=== PATIENT | female | born 1945 | race Caucasian/White ===

== ENCOUNTER 2019-06-16 08:06 | Inpatient (IN) ==
[2019-06-16] MEDS ORDERED: Naloxone 0.4 MG/ML INJ IVP PRN (09:27)
[2019-06-16] MEDS: Norepinephrine 4 MG in 0.9 % Sodium Chloride 250 ML IVC SCH (09:44)
[2019-06-16] MEDS ORDERED: Ipratropium/Albuterol Neb 3 ML IH ONE (10:04)
[2019-06-16] MEDS ORDERED: Ipratropium/Albuterol Neb 3 ML ONE (10:12)
[2019-06-16] MEDS ORDERED: Albumin 25% 25gram/100mL 25 GM/100 ML IV.SOLN IVPB ONE (10:47)
[2019-06-16 23:54] LABS: ABG Base Excess 3 mEq/L (-2 to 3); ABG HCO3 29 mEq/L (21-27); ABG Oxygen Saturation 93 % (95-98); ABG PCO2 50 mmHg (35-45); ABG PH 7.37 pH Units (7.32-7.45); ABG PO2 69 mmHg (85-104); ABG TCO2 30 mEq/L (20-26)
[2019-06-17] MEDS: Ipratropium/Albuterol Neb 3 ML IH SCH ×6 (03:46→23:41)
[2019-06-17] MEDS ORDERED: *HR* Dextrose 50 % in Water (Syg) 50 ML SYRINGE IVP ONE (03:51)
[2019-06-17 03:55] LABS: VBG Ionized Calcium 0.96 mmol/L (1.15-1.35)
[2019-06-17 04:22] LABS: Calcium 8.2 mg/dL (8.6-10.3); Magnesium 2.1 mg/dL (1.6-2.6); Phosphorous 3.2 mg/dL (2.7-4.5); Potassium 4.5 mEq/L (3.5-5.1)
[2019-06-17 04:41] LABS: Hematocrit 22.4 % (35.3-44.9); Hemoglobin 7.1 g/dL (11.5-15.4); Mean Corpuscular HGB Conc 31.7 g/dL (31.6-35.5); Mean Corpuscular Hemoglobin 31.7 pg (28.0-33.3); Mean Platelet Volume 10.1 fL (9.4-12.4); Platelet Count 167 K/mcL (140-400); Red Blood Count 2.24 M/mcL (3.82-4.97); Red Cell Distribution Width 14.6 % (11.5-14.5); White Blood Count 8.8 K/mcL (4.3-11.1)
[2019-06-17] MEDS ORDERED: D5% in Water 1,000 ML IVC PRN (06:24)
[2019-06-17] MEDS ORDERED: Dextrose Gel 15 GM/37.5 ML TUBE PO PRN ×2 (06:24)
[2019-06-17] MEDS: *HR* Dextrose 50 % in Water (Syg) 50 ML SYRINGE IVP PRN ×3 (07:34→13:10)
[2019-06-17] MEDS: Octreotide 400 MCG in 0.9 % Sodium Chloride 100 ML IVC SCH (11:50)
[2019-06-17] MEDS ORDERED: Melatonin 3 MG TABLET PO PRN (23:25)
[2019-06-18] MEDS: Ipratropium/Albuterol Neb 3 ML IH SCH ×6 (03:35→23:41)
[2019-06-18 05:56] LABS: Hematocrit 21.6 % (35.3-44.9); Hemoglobin 7.1 g/dL (11.5-15.4); Mean Corpuscular HGB Conc 32.9 g/dL (31.6-35.5); Mean Corpuscular Hemoglobin 32.3 pg (28.0-33.3); Mean Corpuscular Volume 98.2 fL (83.0-100.0); Mean Platelet Volume 9.8 fL (9.4-12.4); Platelet Count 230 K/mcL (140-400); White Blood Count 6.8 K/mcL (4.3-11.1)
[2019-06-18 06:13] LABS: Calcium 7.7 mg/dL (8.6-10.3); Phosphorous 4.1 mg/dL (2.7-4.5); Potassium 5.5 mEq/L (3.5-5.1)
[2019-06-18] MEDS: Norepinephrine 4 MG in 0.9 % Sodium Chloride 250 ML IVC SCH (07:50)
[2019-06-18] MEDS: Octreotide 400 MCG in 0.9 % Sodium Chloride 100 ML IVC SCH (07:51)
[2019-06-18] MEDS ORDERED: 0.9 % Sodium Chloride 250 ML IVC PRN ×2 (07:53→15:17)
[2019-06-18] MEDS ORDERED: 0.9 % Sodium Chloride 1,000 ML PRIME SCH ×2 (08:00→15:17)
[2019-06-18 08:30] LABS: Hepatitis B Surface Antibody 51.72 mIU/mL
[2019-06-18 08:41] LABS: Hepatitis B Surface Antigen Nonreactive (Nonreactive)
[2019-06-18] MEDS ORDERED: Albumin 25% 25gram/100mL 25 GM/100 ML IV.SOLN IVPB PRN ×3 (10:07→15:17)
[2019-06-18] MEDS ORDERED: Albumin 25% 25gram/100mL 25 GM/100 ML IV.SOLN ONE (10:15)
[2019-06-18 11:01] LABS: % Iron Saturation 9 % (15-50); Iron 20 mcg/dL (50-170); Transferrin 156 mg/dL (203-362)
[2019-06-18 11:18] LABS: Ferritin 894 ng/mL (10-120)
[2019-06-18 11:24] LABS: Folate 16.5 ng/mL (3.0-16.0)
[2019-06-18] MEDS ORDERED: NON-FORMULARY MEDICATION 1 EACH EACH (Hydroxyzine Hcl [Hydroxyzine Hcl] 25 MG) PO PRN (15:06)
[2019-06-18] MEDS ORDERED: Ipratropium/Albuterol Neb 3 ML IH PRN ×2 (15:06→15:17)
[2019-06-18] MEDS ORDERED: Dextrose Gel 15 GM/37.5 ML TUBE PO PRN ×2 (15:17)
[2019-06-18] MEDS ORDERED: D5% in Water 1,000 ML IVC PRN (15:17)
[2019-06-18] MEDS ORDERED: Melatonin 3 MG TABLET PO PRN (15:17)
[2019-06-18] MEDS ORDERED: *HR* Dextrose 50 % in Water (Syg) 50 ML SYRINGE IVP PRN (15:17)
[2019-06-18] MEDS ORDERED: Naloxone 0.4 MG/ML INJ IVP PRN (15:17)
[2019-06-18] MEDS: *HR* Heparin 5,000 UNIT/ML VIAL SQ SCH (16:57)
[2019-06-18] MEDS ORDERED: *HR* Heparin 5,000 UNIT/ML VIAL SQ SCH (18:00)
[2019-06-18] MEDS: Venlafaxine XR (24 HR) 37.5 MG CAP.ER.24H PO SCH (20:33)
[2019-06-18] MEDS: Gabapentin 100 MG CAPSULE PO SCH (20:33)
[2019-06-18] MEDS ORDERED: VENLAFAXINE HCL 37.5 MG PO SCH (21:00)
[2019-06-18] MEDS ORDERED: Gabapentin 100 MG CAPSULE PO SCH (21:00)
[2019-06-19 01:57] LABS: Basophils % 0.2 %; Eosinophils % 0.5 %; Hematocrit 20.9 % (35.3-44.9); Hemoglobin 6.6 g/dL (11.5-15.4); Immature Granulocytes % 0.5 % (0-4); Lymphocytes # 0.8 K/mcL (0.6-4.6); Mean Corpuscular HGB Conc 31.6 g/dL (31.6-35.5); Mean Corpuscular Hemoglobin 31.3 pg (28.0-33.3); Mean Corpuscular Volume 99.1 fL (83.0-100.0); Mean Platelet Volume 9.1 fL (9.4-12.4); Monocytes # 0.6 K/mcL (0.0-1.3); Monocytes % 9.6 %; Neutrophils # 5.1 K/mcL (1.6-8.9); Platelet Count 239 K/mcL (140-400); Red Blood Count 2.11 M/mcL (3.82-4.97); Red Cell Distribution Width 14.9 % (11.5-14.5); Segmented Neutrophils % 77.2 %; White Blood Count 6.6 K/mcL (4.3-11.1)
[2019-06-19 01:58] LABS: Hematocrit 20.6 % (35.3-44.9); Hemoglobin 6.6 g/dL (11.5-15.4); Mean Corpuscular Hemoglobin 31.7 pg (28.0-33.3); Mean Platelet Volume 9.3 fL (9.4-12.4); Platelet Count 231 K/mcL (140-400); Red Blood Count 2.08 M/mcL (3.82-4.97); Red Cell Distribution Width 14.9 % (11.5-14.5); White Blood Count 6.9 K/mcL (4.3-11.1)
[2019-06-19 02:24] LABS: Calcium 8.2 mg/dL (8.6-10.3); Magnesium 1.9 mg/dL (1.6-2.6); Phosphorous 3.2 mg/dL (2.7-4.5); Potassium 3.9 mEq/L (3.5-5.1)
[2019-06-19] MEDS: Ipratropium/Albuterol Neb 3 ML IH SCH ×3 (03:41→11:14)
[2019-06-19] MEDS: *HR* Heparin 5,000 UNIT/ML VIAL SQ SCH (05:43)
[2019-06-19] MEDS ORDERED: 0.9 % Sodium Chloride 250 ML IVC PRN (07:50)
[2019-06-19] MEDS ORDERED: Ferumoxytol 510 MG in 0.9 % Sodium Chloride 100 ML IVPB ONE (09:00)
[2019-06-19] MEDS ORDERED: Renal Vitamin 1 CAP CAPSULE PO SCH ×2 (09:00)
[2019-06-19] MEDS ORDERED: Aspirin Enteric Coated 81 MG Tablet PO SCH ×2 (09:00)
[2019-06-19] MEDS: Gabapentin 100 MG CAPSULE PO SCH (09:23)
[2019-06-19] MEDS: Venlafaxine XR (24 HR) 37.5 MG CAP.ER.24H PO SCH (09:23)
[2019-06-19 11:36] VITALS: BP 95/64
== END 2019-06-19 13:10 | DRG 917 ==
LOC: 3NENU 08:14 → ICNU 08:29 → 2ANU 06-18 14:29
PROVIDERS: ADMIT Internal Medicine Pulmonary Disease; ATTEND Internal Medicine

== ENCOUNTER 2019-06-20 05:47 | Observation (INO) ==
[2019-06-20] MEDS ORDERED: Naloxone 0.4 MG/ML INJ IVP PRN (07:56)
[2019-06-20] MEDS: cefTRIAXone 1,000 MG in Water for inj. (sterile) 10 ML IVP SCH (08:40)
[2019-06-20] MEDS: Azithromycin 500 MG in 0.9 % Sodium Chloride 250 ML IVPB SCH (08:40)
[2019-06-20] MEDS: carvediloL 6.25 MG TABLET PO SCH ×2 (08:42→17:35)
[2019-06-20] MEDS: Aspirin Enteric Coated 81 MG Tablet PO SCH (08:44)
[2019-06-20] MEDS: Gabapentin 100 MG CAPSULE PO SCH ×3 (08:44→19:52)
[2019-06-20] MEDS: Ipratropium/Albuterol Neb 3 ML IH SCH ×5 (09:49→23:21)
[2019-06-20] MEDS: Budesonide/Formoterol 160/4.5 1 PUFF INH IH SCH ×2 (09:51→19:44)
[2019-06-20] MEDS: *HR* Heparin 5,000 UNIT/ML VIAL SQ SCH ×2 (10:13→17:35)
[2019-06-20] MEDS: MethylPREDNISolone 40 MG/ML VIAL IVP SCH ×3 (10:13→23:06)
[2019-06-21 01:40] LABS: Hematocrit 21.9 % (35.3-44.9); Hemoglobin 6.9 g/dL (11.5-15.4); Immature Granulocytes % 0.4 % (0-4); Lymphocytes # 0.3 K/mcL (0.6-4.6); Lymphocytes % 6.4 %; Mean Corpuscular HGB Conc 31.5 g/dL (31.6-35.5); Mean Corpuscular Hemoglobin 30.8 pg (28.0-33.3); Mean Corpuscular Volume 97.8 fL (83.0-100.0); Mean Platelet Volume 9.3 fL (9.4-12.4); Monocytes # 0.2 K/mcL (0.0-1.3); Monocytes % 3.1 %; Neutrophils # 4.7 K/mcL (1.6-8.9); Platelet Count 217 K/mcL (140-400); Red Blood Count 2.24 M/mcL (3.82-4.97); Red Cell Distribution Width 14.8 % (11.5-14.5); Segmented Neutrophils % 90.1 %; White Blood Count 5.2 K/mcL (4.3-11.1)
[2019-06-21 01:59] LABS: Calcium 8.8 mg/dL (8.6-10.3); Phosphorous 3.5 mg/dL (2.7-4.5)
[2019-06-21] MEDS: Ipratropium/Albuterol Neb 3 ML IH SCH ×3 (03:30→11:46)
[2019-06-21] MEDS: *HR* Heparin 5,000 UNIT/ML VIAL SQ SCH (05:59)
[2019-06-21] MEDS ORDERED: 0.9 % Sodium Chloride 1,000 ML PRIME SCH (07:30)
[2019-06-21] MEDS ORDERED: 0.9 % Sodium Chloride 250 ML IVC PRN (07:30)
[2019-06-21] MEDS: carvediloL 6.25 MG TABLET PO SCH (07:36)
[2019-06-21] MEDS: Gabapentin 100 MG CAPSULE PO SCH (07:49)
[2019-06-21] MEDS: MethylPREDNISolone 40 MG/ML VIAL IVP SCH (07:49)
[2019-06-21] MEDS: Aspirin Enteric Coated 81 MG Tablet PO SCH (07:49)
[2019-06-21] MEDS: cefTRIAXone 1,000 MG in Water for inj. (sterile) 10 ML IVP SCH (07:49)
[2019-06-21] MEDS: Azithromycin 500 MG in 0.9 % Sodium Chloride 250 ML IVPB SCH (07:50)
[2019-06-21] MEDS ORDERED: Ondansetron 4 MG/2 ML VIAL IVP PRN (08:46)
[2019-06-21] MEDS: Budesonide/Formoterol 160/4.5 1 PUFF INH IH SCH (11:46)
[2019-06-21 12:04] VITALS: BP 158/84
== END 2019-06-21 13:04 ==
LOC: 2ANU → SUATTDRO 07:20
PROVIDERS: ADMIT Student in an Organized Health Care Education/Training Program; ATTEND Internal Medicine

== ENCOUNTER 2019-06-29 22:13 | Inpatient (IN) ==
[2019-06-30] MEDS ORDERED: Ondansetron ODT 4 MG TAB.RAPDIS SL PRN (01:42)
[2019-06-30] MEDS ORDERED: Naloxone 0.4 MG/ML INJ IVP PRN (01:42)
[2019-06-30] MEDS ORDERED: Aspirin 81 MG TAB.CHEW PO ONE (01:45)
[2019-06-30] MEDS ORDERED: Melatonin 3 MG TABLET PO PRN (02:40)
[2019-06-30] MEDS ORDERED: Calcium Gluconate 1gm/50mL 1 GM/50 ML BAG IVPB ONE (03:01)
[2019-06-30 03:18] LABS: Calcium 8.1 mg/dL (8.6-10.3); Potassium 4.5 mEq/L (3.5-5.1)
[2019-06-30] MEDS: Ipratropium/Albuterol Neb 3 ML IH SCH ×4 (03:58→22:26)
[2019-06-30] MEDS: *HR* Heparin 5,000 UNIT/ML VIAL SQ SCH ×2 (04:38→17:12)
[2019-06-30 06:32] LABS: Basophils % 0.2 %; Hematocrit 27.4 % (35.3-44.9); Hemoglobin 8.4 g/dL (11.5-15.4); Immature Granulocytes % 1.4 % (0-4); Lymphocytes # 0.4 K/mcL (0.6-4.6); Lymphocytes % 6.3 %; Mean Corpuscular HGB Conc 30.7 g/dL (31.6-35.5); Mean Corpuscular Hemoglobin 30.7 pg (28.0-33.3); Mean Platelet Volume 9.1 fL (9.4-12.4); Monocytes # 0.2 K/mcL (0.0-1.3); Monocytes % 2.9 %; Neutrophils # 5.2 K/mcL (1.6-8.9); Platelet Count 242 K/mcL (140-400); Red Blood Count 2.74 M/mcL (3.82-4.97); Red Cell Distribution Width 17.6 % (11.5-14.5); Segmented Neutrophils % 89.2 %; White Blood Count 5.9 K/mcL (4.3-11.1)
[2019-06-30] MEDS ORDERED: hydrOXYzine pamoate 25 MG CAPSULE PO PRN (08:06)
[2019-06-30] MEDS ORDERED: Ipratropium/Albuterol Neb 3 ML IH PRN (08:06)
[2019-06-30 08:24] LABS: Estimated Average Glucose 103 mg/dl
[2019-06-30] MEDS: carvediloL 6.25 MG TABLET PO SCH ×2 (08:41→16:47)
[2019-06-30] MEDS: Venlafaxine XR (24 HR) 37.5 MG CAP.ER.24H PO SCH ×2 (08:43→20:59)
[2019-06-30] MEDS: Gabapentin 100 MG CAPSULE PO SCH ×3 (08:43→20:59)
[2019-06-30] MEDS ORDERED: Furosemide 20 MG TABLET PO SCH (09:00)
[2019-06-30] MEDS ORDERED: NON-FORMULARY MEDICATION 1 EACH EACH (Umeclidinium Brm/Vilanterol Tr [Anoro Ellipta 62.5-2 IH SCH (09:00)
[2019-06-30] MEDS ORDERED: *HR* Heparin 10,000 UNIT/10 ML VIAL IV PRN (12:06)
[2019-06-30] MEDS ORDERED: Albumin 25% 25gram/100mL 25 GM/100 ML IV.SOLN IVPB PRN ×2 (12:06→14:19)
[2019-06-30] MEDS ORDERED: 0.9 % Sodium Chloride 250 ML IVC PRN (12:06)
[2019-06-30] MEDS ORDERED: 0.9 % Sodium Chloride 1,000 ML PRIME SCH (12:15)
[2019-06-30] MEDS ORDERED: Albumin 25% 25gram/100mL 25 GM/100 ML IV.SOLN ONE (14:15)
[2019-06-30] MEDS ORDERED: Darbepoetin 100 MCG/0.5 ML SYRINGE SQ SCH (16:00)
[2019-06-30 18:54] LABS: Troponin I 0.06 ng/mL (< 0.04)
[2019-06-30] MEDS ORDERED: Isovue-370 500 ML BOTTLE IVP ONE (19:11)
[2019-06-30] MEDS ORDERED: Furosemide 20 MG/2 ML VIAL IVP ONE ×2 (22:51→22:53)
[2019-06-30] MEDS ORDERED: *HR* LORazepam 2 MG/ML VIAL IVP ONE (22:54)
[2019-06-30] MEDS ORDERED: Levalbuterol Neb 1.25 MG/3 ML IH PRN (23:07)
[2019-06-30] MEDS: Melatonin 3 MG TABLET PO SCH (23:52)
[2019-07-01 00:09] LABS: VBG HCO3 30 mEq/L (21-27); VBG PCO2 54 mmHg (41-51); VBG PH 7.36 pH Units (7.32-7.42); VBG PO2 97 mmHg (25-50)
[2019-07-01 00:26] LABS: Calcium 8.6 mg/dL (8.6-10.3); Magnesium 2.2 mg/dL (1.6-2.6); Potassium 4.2 mEq/L (3.5-5.1)
[2019-07-01] MEDS: Levalbuterol Neb 1.25 MG/3 ML IH SCH ×4 (04:04→21:38)
[2019-07-01 06:36] LABS: Hematocrit 23.4 % (35.3-44.9); Hemoglobin 7.3 g/dL (11.5-15.4); Mean Corpuscular HGB Conc 31.2 g/dL (31.6-35.5); Mean Corpuscular Hemoglobin 31.5 pg (28.0-33.3); Mean Corpuscular Volume 100.9 fL (83.0-100.0); Mean Platelet Volume 9.2 fL (9.4-12.4); Platelet Count 208 K/mcL (140-400); Red Blood Count 2.32 M/mcL (3.82-4.97); Red Cell Distribution Width 18.2 % (11.5-14.5); White Blood Count 8.6 K/mcL (4.3-11.1)
[2019-07-01] MEDS: *HR* Heparin 5,000 UNIT/ML VIAL SQ SCH ×2 (06:41→17:03)
[2019-07-01 06:55] LABS: Calcium 8.4 mg/dL (8.6-10.3); Potassium 3.9 mEq/L (3.5-5.1)
[2019-07-01] MEDS ORDERED: Furosemide 80 MG in 0.9 % Sodium Chloride 50 ML IVPB ONE (07:17)
[2019-07-01] MEDS: Gabapentin 100 MG CAPSULE PO SCH ×3 (09:40→20:43)
[2019-07-01] MEDS: Venlafaxine XR (24 HR) 37.5 MG CAP.ER.24H PO SCH ×2 (09:40→20:43)
[2019-07-01] MEDS: Metoprolol XL (24 HR) Succ 25 MG TAB.ER.24H PO SCH (09:40)
[2019-07-01] MEDS: Aspirin Enteric Coated 81 MG Tablet PO SCH (09:40)
[2019-07-01 10:42] LABS: RBC,Pleural Fluid < 0.002 M/mcL
[2019-07-01 10:55] LABS: Amylase,Pleural Fluid 27 Units/L (No Ref Range); Glucose,Pleural Fluid 104 mg/dL (No Ref Range); LDH,Pleural Fluid 57 Units/L (No Ref Range); Total Protein,Pleural Fluid < 3.0 g/dL
[2019-07-01 11:34] LABS: INR 1.2; Prothrombin Time 13.9 Seconds (9.4-12.1)
[2019-07-01 11:36] LABS: Basophils,Pleural Fluid 0 %; Eosinophils,Pleural Fluid 0 %
[2019-07-01 11:38] LABS: Appearance of Pleural Fl Clear (Clear)
[2019-07-01 11:49] LABS: Albumin 4.1 g/dL (3.5-5.7); Albumin/Globulin Ratio 2.4 (1.1-2.2); Bilirubin,Total 0.6 mg/dL (0.3-1.0); Globulin 1.7 g/dL (2.4-3.5); Total Protein 5.8 g/dL (6.4-8.9)
[2019-07-01] MEDS: Melatonin 3 MG TABLET PO SCH (20:43)
[2019-07-01] MEDS: Sennosides/Docusate Sodium TABLET PO SCH (20:43)
[2019-07-02 03:20] LABS: Hematocrit 23.6 % (35.3-44.9); Hemoglobin 7.3 g/dL (11.5-15.4); Mean Corpuscular HGB Conc 30.9 g/dL (31.6-35.5); Mean Corpuscular Hemoglobin 30.9 pg (28.0-33.3); Platelet Count 204 K/mcL (140-400); Red Blood Count 2.36 M/mcL (3.82-4.97); Red Cell Distribution Width 18.1 % (11.5-14.5); White Blood Count 9.6 K/mcL (4.3-11.1)
[2019-07-02 03:30] LABS: Calcium 8.6 mg/dL (8.6-10.3)
[2019-07-02] MEDS: Levalbuterol Neb 1.25 MG/3 ML IH SCH ×2 (04:00→10:49)
[2019-07-02] MEDS: *HR* Heparin 5,000 UNIT/ML VIAL SQ SCH (07:17)
[2019-07-02] MEDS ORDERED: Albumin 25% 25gram/100mL 25 GM/100 ML IV.SOLN IVPB PRN (08:05)
[2019-07-02] MEDS ORDERED: 0.9 % Sodium Chloride 250 ML IVC PRN (08:05)
[2019-07-02] MEDS: Sennosides/Docusate Sodium TABLET PO SCH (08:13)
[2019-07-02] MEDS: Gabapentin 100 MG CAPSULE PO SCH (08:13)
[2019-07-02] MEDS: Aspirin Enteric Coated 81 MG Tablet PO SCH (08:13)
[2019-07-02] MEDS: Venlafaxine XR (24 HR) 37.5 MG CAP.ER.24H PO SCH (08:13)
[2019-07-02] MEDS: Metoprolol XL (24 HR) Succ 25 MG TAB.ER.24H PO SCH (08:14)
[2019-07-02] MEDS ORDERED: 0.9 % Sodium Chloride 1,000 ML PRIME SCH (08:15)
[2019-07-02] MEDS ORDERED: polyethylene glycoL 3350 17 GM POWD.PACK PO SCH (09:00)
[2019-07-02 12:34] VITALS: BP 101/66
[2019-07-03 03:17] LABS: Fluid Source for Albumin PLEURAL FLUID
[2019-07-03 03:36] LABS: Fluid Source for Bilirubin PLEURAL FLUID; Fluid Source for CEA PLEURAL FLUID
== END 2019-07-02 14:40 | DRG 280 ==
LOC: 2ANU → SUATTDRO 06-30 00:29
PROVIDERS: ADMIT Internal Medicine; ATTEND Internal Medicine

== ENCOUNTER 2019-07-09 04:17 | Inpatient (IN) ==
[2019-07-09] MEDS ORDERED: Aminoglycoside Consult 1 EACH MC ONE (08:09)
[2019-07-09] MEDS ORDERED: Naloxone 0.4 MG/ML INJ IVP PRN (09:27)
[2019-07-09] MEDS ORDERED: Vancomycin 1 EACH in 0.9 % Sodium Chloride 250 ML IVPB SCH (10:00)
[2019-07-09] MEDS: Norepinephrine 4 MG in 0.9 % Sodium Chloride 250 ML IVC SCH (16:04)
[2019-07-09] MEDS: *HR* Heparin 5,000 UNIT/ML VIAL SQ SCH (16:06)
[2019-07-09] MEDS: Piperacillin/Tazobactam 3.375 GM in 0.9 % Sodium Chloride Mini Bag 100 ML IVPB SCH (17:33)
[2019-07-09] MEDS ORDERED: Melatonin 3 MG TABLET PO PRN (23:56)
[2019-07-10] MEDS: *HR* Heparin 5,000 UNIT/ML VIAL SQ SCH ×5 (00:05→23:26)
[2019-07-10 04:50] LABS: Basophils # 0.1 K/mcL (0.0-0.2); Basophils % 0.7 %; Eosinophils # 0.1 K/mcL (0.0-0.6); Eosinophils % 0.9 %; Hematocrit 24.8 % (35.3-44.9); Hemoglobin 7.6 g/dL (11.5-15.4); Immature Granulocytes % 0.7 % (0-4); Lymphocytes # 1.2 K/mcL (0.6-4.6); Lymphocytes % 16.7 %; Mean Corpuscular HGB Conc 30.6 g/dL (31.6-35.5); Mean Corpuscular Hemoglobin 31.8 pg (28.0-33.3); Mean Corpuscular Volume 103.8 fL (83.0-100.0); Mean Platelet Volume 9.5 fL (9.4-12.4); Monocytes # 0.8 K/mcL (0.0-1.3); Monocytes % 11.2 %; Neutrophils # 5.2 K/mcL (1.6-8.9); Platelet Count 300 K/mcL (140-400); Red Blood Count 2.39 M/mcL (3.82-4.97); Red Cell Distribution Width 18.9 % (11.5-14.5); Segmented Neutrophils % 69.8 %; White Blood Count 7.4 K/mcL (4.3-11.1)
[2019-07-10 05:10] LABS: Calcium 8.1 mg/dL (8.6-10.3); Magnesium 2.1 mg/dL (1.6-2.6); Phosphorous 4.5 mg/dL (2.7-4.5); Potassium 5.1 mEq/L (3.5-5.1)
[2019-07-10] MEDS: Piperacillin/Tazobactam 3.375 GM in 0.9 % Sodium Chloride Mini Bag 100 ML IVPB SCH ×2 (05:59→16:46)
[2019-07-10] MEDS: Norepinephrine 4 MG in 0.9 % Sodium Chloride 250 ML IVC SCH (06:00)
[2019-07-10] MEDS ORDERED: Albumin 25% 25gram/100mL 25 GM/100 ML IV.SOLN IVPB PRN (07:49)
[2019-07-10] MEDS ORDERED: 0.9 % Sodium Chloride 250 ML IVC PRN (07:49)
[2019-07-10] MEDS ORDERED: 0.9 % Sodium Chloride 2,000 ML ONE (07:51)
[2019-07-10] MEDS: Acetaminophen 325 MG TABLET PO PRN ×2 (07:57→19:34)
[2019-07-10] MEDS ORDERED: 0.9 % Sodium Chloride 1,000 ML PRIME SCH (08:00)
[2019-07-10 09:02] LABS: INR 1.2; Prothrombin Time 13.2 Seconds (9.4-12.1)
[2019-07-10 11:30] LABS: Thyroid Stimulating Hormone 2.549 mcIU/mL (0.340-5.600)
[2019-07-10] MEDS ORDERED: Ipratropium/Albuterol Neb 3 ML IH PRN (12:45)
[2019-07-10] MEDS ORDERED: Ondansetron 4 MG/2 ML VIAL IVP PRN (13:06)
[2019-07-10] MEDS ORDERED: Darbepoetin 100 MCG/0.5 ML SYRINGE SQ SCH (14:00)
[2019-07-10] MEDS ORDERED: Pregabalin 75 MG CAPSULE PO ONE (15:30)
[2019-07-10] MEDS: Melatonin 3 MG TABLET PO PRN (22:15)
[2019-07-11 03:43] LABS: Basophils # 0.1 K/mcL (0.0-0.2); Basophils % 0.7 %; Eosinophils # 0.1 K/mcL (0.0-0.6); Eosinophils % 1.3 %; Hematocrit 25.9 % (35.3-44.9); Hemoglobin 7.6 g/dL (11.5-15.4); Immature Granulocytes % 0.6 % (0-4); Lymphocytes # 1.2 K/mcL (0.6-4.6); Lymphocytes % 17.1 %; Mean Corpuscular HGB Conc 29.3 g/dL (31.6-35.5); Mean Corpuscular Volume 105.7 fL (83.0-100.0); Mean Platelet Volume 9.4 fL (9.4-12.4); Monocytes # 0.7 K/mcL (0.0-1.3); Monocytes % 10.1 %; Neutrophils # 4.8 K/mcL (1.6-8.9); Platelet Count 313 K/mcL (140-400); Red Blood Count 2.45 M/mcL (3.82-4.97); Red Cell Distribution Width 19.4 % (11.5-14.5); Segmented Neutrophils % 70.2 %; White Blood Count 6.9 K/mcL (4.3-11.1)
[2019-07-11 04:01] LABS: Calcium 8.1 mg/dL (8.6-10.3); Potassium 4.1 mEq/L (3.5-5.1)
[2019-07-11] MEDS: Piperacillin/Tazobactam 3.375 GM in 0.9 % Sodium Chloride Mini Bag 100 ML IVPB SCH (05:45)
[2019-07-11] MEDS: *HR* Heparin 5,000 UNIT/ML VIAL SQ SCH ×2 (07:58→16:27)
[2019-07-11] MEDS: hydrOXYzine pamoate 25 MG CAPSULE PO PRN ×2 (07:58→16:27)
[2019-07-11] MEDS: Gabapentin 100 MG CAPSULE PO SCH ×3 (07:58→20:25)
[2019-07-11] MEDS: Norepinephrine 4 MG in 0.9 % Sodium Chloride 250 ML IVC SCH (15:24)
[2019-07-11] MEDS: cefTRIAXone 1,000 MG in Water for inj. (sterile) 10 ML IVP SCH (16:27)
[2019-07-11] MEDS: Melatonin 3 MG TABLET PO PRN (21:58)
[2019-07-12] MEDS: *HR* Heparin 5,000 UNIT/ML VIAL SQ SCH ×3 (00:03→15:04)
[2019-07-12 04:10] LABS: Basophils # 0.1 K/mcL (0.0-0.2); Basophils % 0.9 %; Eosinophils # 0.1 K/mcL (0.0-0.6); Eosinophils % 1.2 %; Hematocrit 25.6 % (35.3-44.9); Hemoglobin 7.6 g/dL (11.5-15.4); Immature Granulocytes % 0.6 % (0-4); Lymphocytes # 1.4 K/mcL (0.6-4.6); Lymphocytes % 20.3 %; Mean Corpuscular HGB Conc 29.7 g/dL (31.6-35.5); Mean Corpuscular Hemoglobin 31.5 pg (28.0-33.3); Mean Corpuscular Volume 106.2 fL (83.0-100.0); Mean Platelet Volume 9.4 fL (9.4-12.4); Monocytes # 0.8 K/mcL (0.0-1.3); Monocytes % 11.3 %; Neutrophils # 4.5 K/mcL (1.6-8.9); Platelet Count 282 K/mcL (140-400); Red Blood Count 2.41 M/mcL (3.82-4.97); Red Cell Distribution Width 19.1 % (11.5-14.5); Segmented Neutrophils % 65.7 %; White Blood Count 6.8 K/mcL (4.3-11.1)
[2019-07-12 04:28] LABS: Calcium 8.2 mg/dL (8.6-10.3); Potassium 4.9 mEq/L (3.5-5.1)
[2019-07-12] MEDS: Gabapentin 100 MG CAPSULE PO SCH ×3 (07:46→22:41)
[2019-07-12] MEDS: cefTRIAXone 1,000 MG in Water for inj. (sterile) 10 ML IVP SCH (07:46)
[2019-07-12] MEDS ORDERED: 0.9 % Sodium Chloride 250 ML IVC PRN (08:13)
[2019-07-12] MEDS ORDERED: Albumin 25% 25gram/100mL 25 GM/100 ML IV.SOLN ONE (09:35)
[2019-07-12] MEDS ORDERED: Ipratropium/Albuterol Neb 3 ML IH PRN (12:40)
[2019-07-12] MEDS ORDERED: Ondansetron 4 MG/2 ML VIAL IVP PRN (12:40)
[2019-07-12] MEDS ORDERED: Naloxone 0.4 MG/ML INJ IVP PRN (12:40)
[2019-07-12] MEDS ORDERED: Darbepoetin 100 MCG/0.5 ML SYRINGE SQ SCH (12:40)
[2019-07-12] MEDS ORDERED: MethylPREDNISolone 40 MG/ML VIAL IVP ONE (16:34)
[2019-07-12] MEDS: hydrOXYzine pamoate 25 MG CAPSULE PO PRN (16:34)
[2019-07-12] MEDS ORDERED: Albuterol 2.5 MG/3 ML NEBULIZER IH ONE (16:34)
[2019-07-12] MEDS ORDERED: Furosemide 40 MG/4 ML VIAL IVP ONE (19:43)
[2019-07-12] MEDS ORDERED: Morphine Sulfate 2 MG/ML SYRINGE IVP ONE (20:14)
[2019-07-12] MEDS ORDERED: *HR* LORazepam 2 MG/ML VIAL IVP ONE (20:21)
[2019-07-12 20:49] LABS: VBG HCO3 29 mEq/L (21-27); VBG PCO2 104 mmHg (41-51); VBG PH 7.05 pH Units (7.32-7.42); VBG PO2 70 mmHg (25-50)
[2019-07-12] MEDS: Ipratropium Neb 0.5 MG NEBULIZER IH SCH ×2 (21:20→23:49)
[2019-07-12 23:04] LABS: VBG HCO3 31 mEq/L (21-27); VBG PCO2 60 mmHg (41-51); VBG PH 7.33 pH Units (7.32-7.42); VBG PO2 168 mmHg (25-50)
[2019-07-12] MEDS: Levalbuterol Neb 1.25 MG/3 ML IH SCH (23:49)
[2019-07-13] MEDS: *HR* Heparin 5,000 UNIT/ML VIAL SQ SCH ×4 (00:33→23:38)
[2019-07-13] MEDS: Ipratropium Neb 0.5 MG NEBULIZER IH SCH ×5 (03:50→19:48)
[2019-07-13] MEDS: Levalbuterol Neb 1.25 MG/3 ML IH SCH ×3 (03:50→16:41)
[2019-07-13 04:50] LABS: Basophils % 0.1 %; Hematocrit 24.3 % (35.3-44.9); Hemoglobin 7.3 g/dL (11.5-15.4); Immature Granulocytes % 0.7 % (0-4); Lymphocytes # 0.5 K/mcL (0.6-4.6); Lymphocytes % 6.3 %; Mean Corpuscular Hemoglobin 31.1 pg (28.0-33.3); Mean Corpuscular Volume 103.4 fL (83.0-100.0); Mean Platelet Volume 9.9 fL (9.4-12.4); Monocytes # 0.2 K/mcL (0.0-1.3); Monocytes % 2.5 %; Neutrophils # 6.5 K/mcL (1.6-8.9); Nucleated Red Blood Cells 0.3 /100 WBC (0); Platelet Count 272 K/mcL (140-400); Red Blood Count 2.35 M/mcL (3.82-4.97); Red Cell Distribution Width 18.6 % (11.5-14.5); Segmented Neutrophils % 90.4 %; White Blood Count 7.1 K/mcL (4.3-11.1)
[2019-07-13 05:00] LABS: Calcium 8.3 mg/dL (8.6-10.3); Potassium 4.9 mEq/L (3.5-5.1)
[2019-07-13] MEDS: Gabapentin 100 MG CAPSULE PO SCH ×3 (08:52→20:14)
[2019-07-13] MEDS ORDERED: cefTRIAXone 1,000 MG in Water for inj. (sterile) 10 ML IVP SCH (09:00)
[2019-07-13] MEDS: predniSONE 20 MG TABLET PO SCH (13:40)
[2019-07-13] MEDS: hydrOXYzine pamoate 25 MG CAPSULE PO PRN (17:13)
[2019-07-13] MEDS ORDERED: Morphine Sulfate 2 MG/ML SYRINGE IVP ONE (19:27)
[2019-07-13] MEDS ORDERED: Levalbuterol Neb 1.25 MG/3 ML IH ONE (19:28)
[2019-07-13] MEDS: Simethicone 80 MG TAB.CHEW PO PRN (20:15)
[2019-07-13] MEDS: Melatonin 3 MG TABLET PO PRN (23:10)
[2019-07-13] MEDS: Acetaminophen 325 MG TABLET PO PRN (23:34)
[2019-07-14] MEDS: Levalbuterol Neb 1.25 MG/3 ML IH SCH ×5 (00:08→20:06)
[2019-07-14] MEDS: Ipratropium Neb 0.5 MG NEBULIZER IH SCH ×6 (00:08→20:06)
[2019-07-14] MEDS: hydrOXYzine pamoate 25 MG CAPSULE PO PRN ×2 (00:48→21:26)
[2019-07-14 05:53] LABS: ABG Base Excess 2 mEq/L (-2 to 3); ABG HCO3 26 mEq/L (21-27); ABG Oxygen Saturation 93 % (95-98); ABG PCO2 39 mmHg (35-45); ABG PH 7.43 pH Units (7.32-7.45); ABG PO2 64 mmHg (85-104); ABG TCO2 27 mEq/L (20-26); Blood Gas Modality 2LPM
[2019-07-14 06:01] LABS: Basophils % 0.2 %; Hematocrit 25.6 % (35.3-44.9); Hemoglobin 7.8 g/dL (11.5-15.4); Immature Granulocytes % 1.1 % (0-4); Lymphocytes # 0.6 K/mcL (0.6-4.6); Lymphocytes % 8.5 %; Mean Corpuscular HGB Conc 30.5 g/dL (31.6-35.5); Mean Corpuscular Hemoglobin 31.1 pg (28.0-33.3); Mean Platelet Volume 9.4 fL (9.4-12.4); Monocytes # 0.3 K/mcL (0.0-1.3); Neutrophils # 5.6 K/mcL (1.6-8.9); Nucleated Red Blood Cells 0.3 /100 WBC (0); Platelet Count 309 K/mcL (140-400); Red Blood Count 2.51 M/mcL (3.82-4.97); Red Cell Distribution Width 18.7 % (11.5-14.5); Segmented Neutrophils % 85.2 %; White Blood Count 6.6 K/mcL (4.3-11.1)
[2019-07-14 06:21] LABS: Calcium 8.8 mg/dL (8.6-10.3); Potassium 5.5 mEq/L (3.5-5.1)
[2019-07-14] MEDS ORDERED: 0.9 % Sodium Chloride 250 ML IVC PRN (06:48)
[2019-07-14] MEDS ORDERED: 0.9 % Sodium Chloride 1,000 ML PRIME SCH (07:00)
[2019-07-14] MEDS: *HR* Heparin 5,000 UNIT/ML VIAL SQ SCH ×2 (07:39→15:29)
[2019-07-14] MEDS: predniSONE 20 MG TABLET PO SCH (07:40)
[2019-07-14] MEDS: Gabapentin 100 MG CAPSULE PO SCH ×3 (07:40→20:34)
[2019-07-14] MEDS: Simethicone 80 MG TAB.CHEW PO PRN (20:34)
[2019-07-14] MEDS: Melatonin 3 MG TABLET PO PRN (21:26)
[2019-07-15] MEDS: Ipratropium Neb 0.5 MG NEBULIZER IH SCH ×6 (00:15→19:53)
[2019-07-15] MEDS: *HR* Heparin 5,000 UNIT/ML VIAL SQ SCH ×3 (00:50→13:58)
[2019-07-15] MEDS: Levalbuterol Neb 1.25 MG/3 ML IH SCH ×4 (04:15→19:53)
[2019-07-15 04:52] LABS: Basophils % 0.3 %; Eosinophils % 0.1 %; Hematocrit 27.6 % (35.3-44.9); Hemoglobin 8.6 g/dL (11.5-15.4); Immature Granulocytes % 0.9 % (0-4); Lymphocytes # 1.6 K/mcL (0.6-4.6); Lymphocytes % 13.8 %; Mean Corpuscular HGB Conc 31.2 g/dL (31.6-35.5); Mean Corpuscular Hemoglobin 31.7 pg (28.0-33.3); Mean Corpuscular Volume 101.8 fL (83.0-100.0); Mean Platelet Volume 9.4 fL (9.4-12.4); Monocytes # 1.4 K/mcL (0.0-1.3); Monocytes % 12.5 %; Neutrophils # 8.3 K/mcL (1.6-8.9); Nucleated Red Blood Cells 0.6 /100 WBC (0); Platelet Count 314 K/mcL (140-400); Red Blood Count 2.71 M/mcL (3.82-4.97); Red Cell Distribution Width 19.3 % (11.5-14.5); Segmented Neutrophils % 72.4 %
[2019-07-15 04:53] LABS: White Blood Count 11.5 K/mcL (4.3-11.1)
[2019-07-15 05:12] LABS: Calcium 9.3 mg/dL (8.6-10.3); Potassium 4.6 mEq/L (3.5-5.1)
[2019-07-15] MEDS: predniSONE 20 MG TABLET PO SCH (08:31)
[2019-07-15] MEDS: hydrOXYzine pamoate 25 MG CAPSULE PO PRN ×2 (08:32→17:55)
[2019-07-15] MEDS: Gabapentin 100 MG CAPSULE PO SCH ×3 (08:32→20:19)
[2019-07-15] MEDS: Furosemide 40 MG TABLET PO SCH (08:32)
[2019-07-15] MEDS: Acetaminophen 325 MG TABLET PO PRN (17:55)
[2019-07-15] MEDS: Sennosides/Docusate Sodium TABLET PO SCH (20:18)
[2019-07-16] MEDS: Ipratropium Neb 0.5 MG NEBULIZER IH SCH ×4 (00:01→10:59)
[2019-07-16] MEDS: *HR* Heparin 5,000 UNIT/ML VIAL SQ SCH ×2 (00:45→09:36)
[2019-07-16] MEDS: Levalbuterol Neb 1.25 MG/3 ML IH SCH ×2 (03:36→07:35)
[2019-07-16 05:17] LABS: Basophils % 0.1 %; Hematocrit 27.6 % (35.3-44.9); Hemoglobin 8.5 g/dL (11.5-15.4); Immature Granulocytes % 1.1 % (0-4); Lymphocytes # 1.1 K/mcL (0.6-4.6); Lymphocytes % 11.2 %; Mean Corpuscular HGB Conc 30.8 g/dL (31.6-35.5); Mean Corpuscular Hemoglobin 31.5 pg (28.0-33.3); Mean Corpuscular Volume 102.2 fL (83.0-100.0); Mean Platelet Volume 9.5 fL (9.4-12.4); Monocytes # 1.1 K/mcL (0.0-1.3); Monocytes % 11.2 %; Neutrophils # 7.2 K/mcL (1.6-8.9); Platelet Count 296 K/mcL (140-400); Red Cell Distribution Width 19.5 % (11.5-14.5); Segmented Neutrophils % 76.4 %; White Blood Count 9.4 K/mcL (4.3-11.1)
[2019-07-16 05:36] LABS: Calcium 8.8 mg/dL (8.6-10.3)
[2019-07-16] MEDS ORDERED: Aspirin Enteric Coated 81 MG Tablet PO SCH (09:00)
[2019-07-16] MEDS ORDERED: Metoprolol XL (24 HR) Succ 25 MG TAB.ER.24H PO SCH (09:00)
[2019-07-16] MEDS ORDERED: polyethylene glycoL 3350 17 GM POWD.PACK PO SCH (09:00)
[2019-07-16] MEDS: Furosemide 40 MG TABLET PO SCH (09:36)
[2019-07-16] MEDS: predniSONE 20 MG TABLET PO SCH (09:36)
[2019-07-16] MEDS: Gabapentin 100 MG CAPSULE PO SCH (09:37)
[2019-07-16] MEDS: Sennosides/Docusate Sodium TABLET PO SCH (09:37)
[2019-07-16 11:03] VITALS: BP 124/86
== END 2019-07-16 14:56 | DRG 189 ==
LOC: 2NENU → SUATTDRO 09:27 → ICNU 12:56 → 2ANU 07-12 12:24
PROVIDERS: ADMIT Student in an Organized Health Care Education/Training Program; ATTEND Internal Medicine

== ENCOUNTER 2019-07-21 12:41 | Inpatient (IN) ==
[2019-07-21] MEDS ORDERED: *HR* FentaNYL (PF) 100 MCG/2 ML VIAL IVP ONE (13:32)
[2019-07-21 14:35] LABS: INR 1.4; Prothrombin Time 15.4 Seconds (9.4-12.1)
[2019-07-21 14:57] LABS: Basophils % 0.2 %; Eosinophils # 0.1 K/mcL (0.0-0.6); Eosinophils % 0.7 %; Hematocrit 39.5 % (35.3-44.9); Hemoglobin 11.9 g/dL (11.5-15.4); Immature Granulocytes % 1.4 % (0-4); Lymphocytes # 1.2 K/mcL (0.6-4.6); Lymphocytes % 7.6 %; Mean Corpuscular HGB Conc 30.1 g/dL (31.6-35.5); Mean Corpuscular Hemoglobin 32.2 pg (28.0-33.3); Mean Corpuscular Volume 106.8 fL (83.0-100.0); Mean Platelet Volume 10.9 fL (9.4-12.4); Neutrophils # 13.3 K/mcL (1.6-8.9); Nucleated Red Blood Cells 2.6 /100 WBC (0); Platelet Count 135 K/mcL (140-400); Red Cell Distribution Width 21.8 % (11.5-14.5); Segmented Neutrophils % 84.1 %; White Blood Count 15.8 K/mcL (4.3-11.1)
[2019-07-21 14:58] LABS: Albumin 4.2 g/dL (3.5-5.7); Albumin/Globulin Ratio 2.2 (1.1-2.2); Alkaline Phosphatase 88 Units/L (34-104); Aspartate Amino Transferase 287 Units/L (13-39); BUN/Creatinine Ratio 13 (6-26); Bilirubin,Total 0.8 mg/dL (0.3-1.0); Blood Urea Nitrogen 63 mg/dL (8-23); Calcium 8.3 mg/dL (8.6-10.3); Carbon Dioxide 29 mEq/L (23-29); Chloride 87 mEq/L (98-107); Globulin 1.9 g/dL (2.4-3.5); Glucose 86 mg/dL (70-105); Osmolality,Calculated 283 (280-300); Potassium 4.4 mEq/L (3.5-5.1); Sodium 128 mEq/L (136-145); Total Protein 6.1 g/dL (6.4-8.9); eGFR For African Americans 10 (> 60); eGFR For Non-African Americans 9 (> 60)
[2019-07-21 15:17] LABS: Alanine Aminotransferase 1371 Units/L (7-52)
[2019-07-21] MEDS ORDERED: Acetaminophen 325 MG TABLET PO PRN (17:06)
[2019-07-21] MEDS ORDERED: Ondansetron ODT 4 MG TAB.RAPDIS SL PRN (17:06)
[2019-07-21] MEDS ORDERED: Furosemide 100 MG in 0.9 % Sodium Chloride 50 ML IVPB ONE (18:01)
[2019-07-21] MEDS ORDERED: metOLazone 5 MG TABLET PO ONE (18:01)
[2019-07-21 19:21] LABS: Acetaminophen < 10 mcg/mL (10-20)
[2019-07-22 04:34] LABS: INR 1.3; Prothrombin Time 14.7 Seconds (9.4-12.1)
[2019-07-22 04:35] LABS: Basophils % 0.1 %; Eosinophils # 0.1 K/mcL (0.0-0.6); Eosinophils % 0.9 %; Hematocrit 35.8 % (35.3-44.9); Hemoglobin 11.1 g/dL (11.5-15.4); Immature Granulocytes % 1.3 % (0-4); Lymphocytes # 1.1 K/mcL (0.6-4.6); Lymphocytes % 9.4 %; Mean Corpuscular Hemoglobin 32.2 pg (28.0-33.3); Mean Corpuscular Volume 103.8 fL (83.0-100.0); Mean Platelet Volume 10.8 fL (9.4-12.4); Monocytes # 0.8 K/mcL (0.0-1.3); Neutrophils # 9.4 K/mcL (1.6-8.9); Platelet Count 133 K/mcL (140-400); Red Blood Count 3.45 M/mcL (3.82-4.97); Red Cell Distribution Width 21.5 % (11.5-14.5); Segmented Neutrophils % 81.3 %; White Blood Count 11.5 K/mcL (4.3-11.1)
[2019-07-22 04:47] LABS: Calcium 8.3 mg/dL (8.6-10.3); Potassium 4.2 mEq/L (3.5-5.1)
[2019-07-22] MEDS ORDERED: Furosemide 100 MG in 0.9 % Sodium Chloride 50 ML IVPB ONE ×2 (07:38→15:00)
[2019-07-22] MEDS ORDERED: metOLazone 5 MG TABLET PO SCH (09:00)
[2019-07-22 10:35] LABS: Albumin 3.9 g/dL (3.5-5.7); Albumin/Globulin Ratio 2.1 (1.1-2.2); Bilirubin,Direct 0.3 mg/dL (0.0-0.2); Bilirubin,Indirect 0.7 mg/dL (0.0-1.0); Globulin 1.9 g/dL (2.4-3.5); Total Protein 5.8 g/dL (6.4-8.9)
[2019-07-22] MEDS: *HR* Heparin 5,000 UNIT/ML VIAL SQ SCH ×2 (15:01→20:28)
[2019-07-22] MEDS: metOLazone 5 MG TABLET PO SCH ×2 (15:01→20:28)
[2019-07-23 01:18] LABS: Albumin 3.8 g/dL (3.5-5.7); Calcium 8.5 mg/dL (8.6-10.3); Phosphorous 5.5 mg/dL (2.7-4.5); Potassium 4.7 mEq/L (3.5-5.1)
[2019-07-23] MEDS: hydrOXYzine pamoate 25 MG CAPSULE PO PRN (08:15)
[2019-07-23] MEDS: metOLazone 5 MG TABLET PO SCH ×2 (08:15→21:10)
[2019-07-23] MEDS: polyethylene glycoL 3350 17 GM POWD.PACK PO SCH (09:26)
[2019-07-23] MEDS: Aspirin Enteric Coated 81 MG Tablet PO SCH (09:26)
[2019-07-23] MEDS: Gabapentin 100 MG CAPSULE PO SCH ×3 (09:26→21:10)
[2019-07-23] MEDS: Sennosides/Docusate Sodium TABLET PO SCH ×2 (09:26→21:10)
[2019-07-23] MEDS: Metoprolol XL (24 HR) Succ 25 MG TAB.ER.24H PO SCH (09:26)
[2019-07-23] MEDS ORDERED: 0.9 % Sodium Chloride 1,000 ML PRIME SCH (11:45)
[2019-07-23] MEDS ORDERED: *HR* Heparin 10,000 UNIT/10 ML VIAL IV PRN (11:45)
[2019-07-23] MEDS ORDERED: 0.9 % Sodium Chloride 250 ML IVC PRN (11:45)
[2019-07-23] MEDS ORDERED: Heparin 1,000 UNITS/500 mL 500 ML ONE (13:18)
[2019-07-23] MEDS ORDERED: 0.9 % Sodium Chloride 500 ML ONE ×2 (13:18→13:55)
[2019-07-23] MEDS ORDERED: *HR* Midazolam HCl 2 MG/2 ML VIAL ONE (13:55)
[2019-07-23] MEDS ORDERED: *HR* FentaNYL (PF) 100 MCG/2 ML VIAL ONE (13:55)
[2019-07-23] MEDS ORDERED: *HR* FentaNYL (PF) 100 MCG/2 ML VIAL IVP ONE (14:00)
[2019-07-23] MEDS ORDERED: *HR* Midazolam HCl 2 MG/2 ML VIAL IVP ONE (14:00)
[2019-07-23] MEDS ORDERED: Furosemide 120 MG in 0.9 % Sodium Chloride 50 ML IV ONE (14:46)
[2019-07-23] MEDS ORDERED: *HR* Heparin 5,000 UNIT/ML VIAL ONE (15:02)
[2019-07-23 16:05] LABS: Albumin 4.1 g/dL (3.5-5.7); Bilirubin,Direct 0.2 mg/dL (0.0-0.2); Bilirubin,Indirect 0.6 mg/dL (0.0-1.0); Bilirubin,Total 0.8 mg/dL (0.3-1.0); Globulin 2.1 g/dL (2.4-3.5); Total Protein 6.2 g/dL (6.4-8.9)
[2019-07-24 03:37] LABS: Hematocrit 34.4 % (35.3-44.9); Hemoglobin 10.5 g/dL (11.5-15.4); Mean Corpuscular HGB Conc 30.5 g/dL (31.6-35.5); Mean Corpuscular Hemoglobin 32.1 pg (28.0-33.3); Mean Corpuscular Volume 105.2 fL (83.0-100.0); Mean Platelet Volume 9.8 fL (9.4-12.4); Platelet Count 121 K/mcL (140-400); Red Blood Count 3.27 M/mcL (3.82-4.97); Red Cell Distribution Width 20.5 % (11.5-14.5); White Blood Count 9.1 K/mcL (4.3-11.1)
[2019-07-24 03:57] LABS: Calcium 8.3 mg/dL (8.6-10.3); Magnesium 2.2 mg/dL (1.6-2.6); Phosphorous 5.6 mg/dL (2.7-4.5); Potassium 3.8 mEq/L (3.5-5.1)
[2019-07-24] MEDS ORDERED: 0.9 % Sodium Chloride 250 ML IVC PRN (08:14)
[2019-07-24] MEDS ORDERED: 0.9 % Sodium Chloride 1,000 ML PRIME SCH (08:15)
[2019-07-24] MEDS ORDERED: *HR* Heparin 10,000 UNIT/10 ML VIAL IV PRN (09:25)
[2019-07-24 13:24] LABS: Troponin I 0.11 ng/mL (< 0.04)
[2019-07-24 14:29] LABS: Albumin 4.1 g/dL (3.5-5.7); Albumin/Globulin Ratio 1.6 (1.1-2.2); Bilirubin,Direct 0.2 mg/dL (0.0-0.2); Bilirubin,Indirect 0.9 mg/dL (0.0-1.0); Bilirubin,Total 1.1 mg/dL (0.3-1.0); Globulin 2.5 g/dL (2.4-3.5); Total Protein 6.6 g/dL (6.4-8.9)
[2019-07-24] MEDS: Gabapentin 100 MG CAPSULE PO SCH ×3 (15:11→20:16)
[2019-07-24] MEDS: Metoprolol XL (24 HR) Succ 25 MG TAB.ER.24H PO SCH (15:12)
[2019-07-24] MEDS: Aspirin Enteric Coated 81 MG Tablet PO SCH (15:12)
[2019-07-24] MEDS: Sennosides/Docusate Sodium TABLET PO SCH ×2 (15:13→20:16)
[2019-07-24] MEDS: polyethylene glycoL 3350 17 GM POWD.PACK PO SCH (15:13)
[2019-07-24] MEDS: *HR* Heparin 5,000 UNIT/ML VIAL SQ SCH (17:46)
[2019-07-25 01:02] LABS: Hemoglobin 10.7 g/dL (11.5-15.4); Mean Corpuscular HGB Conc 32.4 g/dL (31.6-35.5); Mean Corpuscular Hemoglobin 32.8 pg (28.0-33.3); Mean Corpuscular Volume 101.2 fL (83.0-100.0); Mean Platelet Volume 11.1 fL (9.4-12.4); Platelet Count 124 K/mcL (140-400); Red Blood Count 3.26 M/mcL (3.82-4.97); Red Cell Distribution Width 19.9 % (11.5-14.5); White Blood Count 12.2 K/mcL (4.3-11.1)
[2019-07-25 01:10] LABS: Calcium 8.3 mg/dL (8.6-10.3); Potassium 4.4 mEq/L (3.5-5.1)
[2019-07-25] MEDS: *HR* Heparin 5,000 UNIT/ML VIAL SQ SCH ×2 (05:32→16:25)
[2019-07-25] MEDS ORDERED: *HR* Heparin 10,000 UNIT/10 ML VIAL IV PRN ×2 (07:43)
[2019-07-25] MEDS ORDERED: 0.9 % Sodium Chloride 250 ML IVC PRN (07:43)
[2019-07-25] MEDS: polyethylene glycoL 3350 17 GM POWD.PACK PO SCH (07:55)
[2019-07-25] MEDS: Sennosides/Docusate Sodium TABLET PO SCH ×2 (07:56→20:28)
[2019-07-25] MEDS: Furosemide 40 MG TABLET PO SCH (10:00)
[2019-07-25] MEDS: Gabapentin 100 MG CAPSULE PO SCH ×3 (10:00→20:26)
[2019-07-25] MEDS: Metoprolol XL (24 HR) Succ 25 MG TAB.ER.24H PO SCH (10:00)
[2019-07-25] MEDS: lisinopriL 5 MG TABLET PO SCH (10:00)
[2019-07-25] MEDS ORDERED: Heparin 1,000 UNITS/500 mL 500 ML ONE (11:17)
[2019-07-25] MEDS ORDERED: Lidocaine/EPI 1:100k 1% 50 ML VIAL ONE (11:17)
[2019-07-25] MEDS: *HR* OxyCODONE Immed Rel 5 MG TABLET PO PRN (17:27)
[2019-07-25] MEDS: Budesonide/Formoterol 160/4.5 1 PUFF INH IH SCH (20:03)
[2019-07-26 03:23] LABS: Hematocrit 34.2 % (35.3-44.9); Hemoglobin 10.8 g/dL (11.5-15.4); Mean Corpuscular HGB Conc 31.6 g/dL (31.6-35.5); Mean Corpuscular Volume 104.6 fL (83.0-100.0); Mean Platelet Volume 10.5 fL (9.4-12.4); Platelet Count 122 K/mcL (140-400); Red Blood Count 3.27 M/mcL (3.82-4.97); Red Cell Distribution Width 19.7 % (11.5-14.5); White Blood Count 8.5 K/mcL (4.3-11.1)
[2019-07-26 04:10] LABS: Hepatitis B Surface Antigen Nonreactive (Nonreactive)
[2019-07-26 04:30] LABS: Albumin 3.2 g/dL (3.5-5.7); Albumin/Globulin Ratio 1.4 (1.1-2.2); Bilirubin,Direct 0.1 mg/dL (0.0-0.2); Bilirubin,Indirect 0.4 mg/dL (0.0-1.0); Bilirubin,Total 0.5 mg/dL (0.3-1.0); Calcium 8.3 mg/dL (8.6-10.3); Globulin 2.3 g/dL (2.4-3.5); Potassium 4.1 mEq/L (3.5-5.1); Total Protein 5.5 g/dL (6.4-8.9)
[2019-07-26 04:35] LABS: INR 1.2; Prothrombin Time 13.9 Seconds (9.4-12.1)
[2019-07-26 04:39] LABS: Hepatitis A Antibody IgM Nonreactive (Nonreactive); Hepatitis B Core IgM Nonreactive (Nonreactive); Hepatitis C Virus Antibody Nonreactive (Nonreactive)
[2019-07-26] MEDS: *HR* Heparin 5,000 UNIT/ML VIAL SQ SCH ×2 (05:29→20:33)
[2019-07-26] MEDS ORDERED: ceFAZolin 1,000 MG, Sodium Chloride IRRigation 1,000 ML IR ONE (06:00)
[2019-07-26] MEDS: Budesonide/Formoterol 160/4.5 1 PUFF INH IH SCH ×2 (07:43→21:29)
[2019-07-26] MEDS: Tiotropium 18 MCG inhalation IH SCH (07:45)
[2019-07-26] MEDS: polyethylene glycoL 3350 17 GM POWD.PACK PO SCH (08:45)
[2019-07-26] MEDS ORDERED: 0.9 % Sodium Chloride 250 ML IVC PRN (08:46)
[2019-07-26] MEDS ORDERED: *HR* Heparin 10,000 UNIT/10 ML VIAL IV PRN (08:46)
[2019-07-26] MEDS: Sennosides/Docusate Sodium TABLET PO SCH ×2 (09:02→20:30)
[2019-07-26] MEDS: Gabapentin 100 MG CAPSULE PO SCH ×3 (09:03→20:30)
[2019-07-26] MEDS: Metoprolol XL (24 HR) Succ 25 MG TAB.ER.24H PO SCH (12:25)
[2019-07-26] MEDS: lisinopriL 5 MG TABLET PO SCH (12:25)
[2019-07-26] MEDS ORDERED: *HR* Propofol 200 MG/20 ML VIAL IVP ONE (12:59)
[2019-07-26] MEDS ORDERED: Lidocaine -MPF 2% 2 ML VIAL ONE (12:59)
[2019-07-26] MEDS ORDERED: 0.9 % Sodium Chloride 500 ML ONE (15:36)
[2019-07-26] MEDS ORDERED: Ondansetron 4 MG/2 ML VIAL IVP PRN (15:51)
[2019-07-26] MEDS ORDERED: Heparin 1,000 UNITS/500 mL 500 ML ONE (15:58)
[2019-07-26] MEDS ORDERED: Lidocaine 1% 20 ML MDV ONE (16:00)
[2019-07-26] MEDS ORDERED: *HR* Midazolam HCl 2 MG/2 ML VIAL ONE (16:14)
[2019-07-26] MEDS ORDERED: *HR* FentaNYL (PF) 100 MCG/2 ML VIAL ONE (17:19)
[2019-07-26] MEDS ORDERED: ceFAZolin 2,000 MG in Water for inj. (sterile) 20 ML IVP ONE (17:28)
[2019-07-26] MEDS: *HR* OxyCODONE Immed Rel 5 MG TABLET PO PRN (22:51)
[2019-07-27] MEDS ORDERED: Morphine Sulfate 2 MG/ML SYRINGE IVP ONE (01:32)
[2019-07-27] MEDS: *HR* Heparin 5,000 UNIT/ML VIAL SQ SCH ×2 (04:33→16:55)
[2019-07-27 05:11] LABS: Hematocrit 34.1 % (35.3-44.9); Hemoglobin 10.2 g/dL (11.5-15.4); Mean Corpuscular HGB Conc 29.9 g/dL (31.6-35.5); Mean Corpuscular Hemoglobin 31.9 pg (28.0-33.3); Mean Corpuscular Volume 106.6 fL (83.0-100.0); Mean Platelet Volume 10.1 fL (9.4-12.4); Platelet Count 145 K/mcL (140-400); Red Cell Distribution Width 19.3 % (11.5-14.5)
[2019-07-27 05:12] LABS: Albumin 3.5 g/dL (3.5-5.7); Albumin/Globulin Ratio 1.7 (1.1-2.2); Bilirubin,Indirect 0.3 mg/dL (0.0-1.0); Bilirubin,Total 0.3 mg/dL (0.3-1.0); Calcium 8.4 mg/dL (8.6-10.3); Globulin 2.1 g/dL (2.4-3.5); Phosphorous 4.3 mg/dL (2.7-4.5); Potassium 4.2 mEq/L (3.5-5.1); Total Protein 5.6 g/dL (6.4-8.9)
[2019-07-27] MEDS: Budesonide/Formoterol 160/4.5 1 PUFF INH IH SCH ×2 (07:43→20:54)
[2019-07-27] MEDS: Tiotropium 18 MCG inhalation IH SCH (07:47)
[2019-07-27] MEDS: polyethylene glycoL 3350 17 GM POWD.PACK PO SCH (09:43)
[2019-07-27] MEDS: *HR* OxyCODONE Immed Rel 5 MG TABLET PO PRN ×2 (09:44→22:07)
[2019-07-27] MEDS: Sennosides/Docusate Sodium TABLET PO SCH ×2 (09:44→22:06)
[2019-07-27] MEDS: Metoprolol XL (24 HR) Succ 25 MG TAB.ER.24H PO SCH (09:44)
[2019-07-27] MEDS: Gabapentin 100 MG CAPSULE PO SCH ×3 (09:44→22:08)
[2019-07-27] MEDS: Furosemide 40 MG TABLET PO SCH (10:08)
[2019-07-28 05:31] LABS: Hematocrit 30.6 % (35.3-44.9); Hemoglobin 9.6 g/dL (11.5-15.4); Mean Corpuscular HGB Conc 31.4 g/dL (31.6-35.5); Mean Corpuscular Hemoglobin 32.4 pg (28.0-33.3); Mean Corpuscular Volume 103.4 fL (83.0-100.0); Mean Platelet Volume 10.1 fL (9.4-12.4); Platelet Count 148 K/mcL (140-400); Red Blood Count 2.96 M/mcL (3.82-4.97); Red Cell Distribution Width 18.7 % (11.5-14.5); White Blood Count 6.1 K/mcL (4.3-11.1)
[2019-07-28 05:39] LABS: Calcium 7.8 mg/dL (8.6-10.3); Phosphorous 4.5 mg/dL (2.7-4.5); Potassium 4.7 mEq/L (3.5-5.1)
[2019-07-28] MEDS: *HR* Heparin 5,000 UNIT/ML VIAL SQ SCH ×2 (06:32→17:31)
[2019-07-28] MEDS: polyethylene glycoL 3350 17 GM POWD.PACK PO SCH (08:52)
[2019-07-28] MEDS: Metoprolol XL (24 HR) Succ 25 MG TAB.ER.24H PO SCH (08:53)
[2019-07-28] MEDS: Gabapentin 100 MG CAPSULE PO SCH ×3 (08:53→21:21)
[2019-07-28] MEDS: Sennosides/Docusate Sodium TABLET PO SCH ×2 (08:54→21:21)
[2019-07-28] MEDS ORDERED: 0.9 % Sodium Chloride 250 ML IVC PRN (09:30)
[2019-07-28] MEDS: Budesonide/Formoterol 160/4.5 1 PUFF INH IH SCH ×2 (09:52→21:45)
[2019-07-28] MEDS: Tiotropium 18 MCG inhalation IH SCH (09:52)
[2019-07-29] MEDS: *HR* OxyCODONE Immed Rel 5 MG TABLET PO PRN (02:27)
[2019-07-29 03:48] LABS: Hematocrit 30.2 % (35.3-44.9); Hemoglobin 9.2 g/dL (11.5-15.4); Mean Corpuscular HGB Conc 30.5 g/dL (31.6-35.5); Mean Corpuscular Hemoglobin 31.9 pg (28.0-33.3); Mean Corpuscular Volume 104.9 fL (83.0-100.0); Mean Platelet Volume 10.5 fL (9.4-12.4); Platelet Count 146 K/mcL (140-400); Red Blood Count 2.88 M/mcL (3.82-4.97); Red Cell Distribution Width 18.6 % (11.5-14.5); White Blood Count 6.5 K/mcL (4.3-11.1)
[2019-07-29 04:08] LABS: Calcium 8.1 mg/dL (8.6-10.3); Potassium 4.3 mEq/L (3.5-5.1)
[2019-07-29] MEDS: *HR* Heparin 5,000 UNIT/ML VIAL SQ SCH ×2 (05:38→17:15)
[2019-07-29] MEDS: Metoprolol XL (24 HR) Succ 25 MG TAB.ER.24H PO SCH (08:35)
[2019-07-29] MEDS: Gabapentin 100 MG CAPSULE PO SCH ×3 (08:36→21:44)
[2019-07-29] MEDS: polyethylene glycoL 3350 17 GM POWD.PACK PO SCH (08:38)
[2019-07-29] MEDS: Furosemide 40 MG TABLET PO SCH (08:38)
[2019-07-29] MEDS: Sennosides/Docusate Sodium TABLET PO SCH ×2 (08:39→21:44)
[2019-07-29] MEDS: Budesonide/Formoterol 160/4.5 1 PUFF INH IH SCH ×2 (10:37→20:10)
[2019-07-29] MEDS: Tiotropium 18 MCG inhalation IH SCH (10:37)
[2019-07-29] MEDS: hydrOXYzine pamoate 25 MG CAPSULE PO PRN (21:45)
[2019-07-30] MEDS: Melatonin 3 MG TABLET PO SCH ×2 (01:10→20:05)
[2019-07-30 05:02] LABS: Hematocrit 30.2 % (35.3-44.9); Hemoglobin 9.1 g/dL (11.5-15.4); Mean Corpuscular HGB Conc 30.1 g/dL (31.6-35.5); Mean Corpuscular Hemoglobin 31.6 pg (28.0-33.3); Mean Corpuscular Volume 104.9 fL (83.0-100.0); Mean Platelet Volume 10.4 fL (9.4-12.4); Platelet Count 180 K/mcL (140-400); Red Blood Count 2.88 M/mcL (3.82-4.97); Red Cell Distribution Width 18.4 % (11.5-14.5); White Blood Count 7.2 K/mcL (4.3-11.1)
[2019-07-30 05:19] LABS: Calcium 8.3 mg/dL (8.6-10.3); Potassium 5.1 mEq/L (3.5-5.1)
[2019-07-30] MEDS ORDERED: Aspirin Enteric Coated 325 MG Tablet PO ONE (06:02)
[2019-07-30] MEDS: *HR* Heparin 5,000 UNIT/ML VIAL SQ SCH ×2 (06:32→16:39)
[2019-07-30] MEDS ORDERED: 0.9 % Sodium Chloride 250 ML IVC PRN (06:45)
[2019-07-30] MEDS: Budesonide/Formoterol 160/4.5 1 PUFF INH IH SCH ×2 (07:38→21:46)
[2019-07-30] MEDS: Tiotropium 18 MCG inhalation IH SCH (07:38)
[2019-07-30] MEDS: Sennosides/Docusate Sodium TABLET PO SCH ×2 (08:03→20:05)
[2019-07-30] MEDS: polyethylene glycoL 3350 17 GM POWD.PACK PO SCH (08:03)
[2019-07-30] MEDS: Metoprolol XL (24 HR) Succ 25 MG TAB.ER.24H PO SCH (08:03)
[2019-07-30] MEDS: Gabapentin 100 MG CAPSULE PO SCH ×3 (08:03→20:05)
[2019-07-30] MEDS: Furosemide 40 MG TABLET PO SCH (08:10)
[2019-07-30] MEDS ORDERED: Lidocaine/EPI 1:100k 1% 50 ML VIAL ONE (08:28)
[2019-07-30] MEDS ORDERED: Heparin 1,000 UNITS/500 mL 500 ML ONE (08:28)
[2019-07-30] MEDS ORDERED: *HR* FentaNYL (PF) 100 MCG/2 ML VIAL IVP ONE (08:32)
[2019-07-30] MEDS ORDERED: *HR* Midazolam HCl 2 MG/2 ML VIAL IVP ONE (08:32)
[2019-07-30] MEDS ORDERED: CeFAZolin 2,000 MG/50 ML BAG IVPB ONE (08:33)
[2019-07-30] MEDS ORDERED: *HR* Heparin 5,000 UNIT/ML VIAL ONE (10:24)
[2019-07-30] MEDS ORDERED: *HR* Heparin 10,000 UNIT/10 ML VIAL IV PRN (13:12)
[2019-07-30] MEDS: *HR* OxyCODONE Immed Rel 5 MG TABLET PO PRN (20:05)
[2019-07-31 03:58] LABS: Hematocrit 28.9 % (35.3-44.9); Hemoglobin 8.6 g/dL (11.5-15.4); Mean Corpuscular HGB Conc 29.8 g/dL (31.6-35.5); Mean Corpuscular Hemoglobin 31.4 pg (28.0-33.3); Mean Corpuscular Volume 105.5 fL (83.0-100.0); Mean Platelet Volume 10.7 fL (9.4-12.4); Platelet Count 156 K/mcL (140-400); Red Blood Count 2.74 M/mcL (3.82-4.97); Red Cell Distribution Width 18.4 % (11.5-14.5); White Blood Count 7.1 K/mcL (4.3-11.1)
[2019-07-31 04:15] LABS: Calcium 8.3 mg/dL (8.6-10.3); Potassium 4.7 mEq/L (3.5-5.1)
[2019-07-31] MEDS: *HR* Heparin 5,000 UNIT/ML VIAL SQ SCH (05:53)
[2019-07-31] MEDS ORDERED: 0.9 % Sodium Chloride 250 ML IVC PRN (07:17)
[2019-07-31] MEDS ORDERED: *HR* Heparin 10,000 UNIT/10 ML VIAL IV PRN (07:17)
[2019-07-31] MEDS ORDERED: 0.9 % Sodium Chloride 1,000 ML PRIME SCH (07:30)
[2019-07-31] MEDS: Gabapentin 100 MG CAPSULE PO SCH ×2 (08:05→14:01)
[2019-07-31] MEDS: Metoprolol XL (24 HR) Succ 25 MG TAB.ER.24H PO SCH (08:06)
[2019-07-31] MEDS: Sennosides/Docusate Sodium TABLET PO SCH (08:06)
[2019-07-31] MEDS: polyethylene glycoL 3350 17 GM POWD.PACK PO SCH (08:10)
[2019-07-31] MEDS ORDERED: Aspirin 81 MG TAB.CHEW PO SCH (10:00)
[2019-07-31] MEDS: Budesonide/Formoterol 160/4.5 1 PUFF INH IH SCH (10:54)
[2019-07-31] MEDS: Tiotropium 18 MCG inhalation IH SCH (10:54)
[2019-07-31 17:08] VITALS: BP 120/60
== END 2019-07-31 17:23 | DRG 252 ==
LOC: EMEROOARM 12:41 → 2ANU 12:41 → SUATTDRO 07-22 10:43
PROVIDERS: ADMIT Family Medicine; ATTEND Internal Medicine
PROC: IRPERMA (2019-07-30 10:00)

== ENCOUNTER 2019-08-09 04:07 | Observation (INO) ==
[2019-08-09 07:00] LABS: Hematocrit 31.3 % (35.3-44.9); Hemoglobin 9.5 g/dL (11.5-15.4); Lymphocytes % 2.6 %; Mean Corpuscular HGB Conc 30.4 g/dL (31.6-35.5); Mean Corpuscular Volume 102.3 fL (83.0-100.0); Mean Platelet Volume 9.6 fL (9.4-12.4); Monocytes % 1.9 %; Platelet Count 320 K/mcL (140-400); Red Blood Count 3.06 M/mcL (3.82-4.97); Red Cell Distribution Width 16.4 % (11.5-14.5); Segmented Neutrophils % 94.3 %; White Blood Count 10.3 K/mcL (4.3-11.1)
[2019-08-09 07:01] LABS: Basophils % 0.2 %; Lymphocytes # 0.3 K/mcL (0.6-4.6); Monocytes # 0.2 K/mcL (0.0-1.3); Neutrophils # 9.7 K/mcL (1.6-8.9)
[2019-08-09 07:22] LABS: Albumin 3.8 g/dL (3.5-5.7); Albumin/Globulin Ratio 1.7 (1.1-2.2); Bilirubin,Total 0.3 mg/dL (0.3-1.0); Calcium 8.1 mg/dL (8.6-10.3); Globulin 2.2 g/dL (2.4-3.5); Potassium 5.2 mEq/L (3.5-5.1)
[2019-08-09 07:25] LABS: Troponin I 0.11 ng/mL (< 0.04)
[2019-08-09] MEDS ORDERED: Ondansetron 4 MG/2 ML VIAL IVP PRN (07:33)
[2019-08-09] MEDS ORDERED: Ipratropium/Albuterol Neb 3 ML IH PRN (07:54)
[2019-08-09] MEDS ORDERED: ACETAMINOPHEN 650 MG PO SCH (08:00)
[2019-08-09] MEDS ORDERED: 0.9 % Sodium Chloride 250 ML IVC PRN (08:16)
[2019-08-09] MEDS ORDERED: 0.9 % Sodium Chloride 1,000 ML PRIME SCH (08:30)
[2019-08-09] MEDS: Sennosides/Docusate Sodium TABLET PO SCH ×2 (08:34→20:41)
[2019-08-09] MEDS: Gabapentin 100 MG CAPSULE PO SCH ×3 (08:34→20:41)
[2019-08-09] MEDS: Aspirin Enteric Coated 81 MG Tablet PO SCH (08:34)
[2019-08-09] MEDS: polyethylene glycoL 3350 17 GM POWD.PACK PO SCH (08:35)
[2019-08-09] MEDS: Metoprolol XL (24 HR) Succ 25 MG TAB.ER.24H PO SCH (08:35)
[2019-08-09] MEDS: Tiotropium 18 MCG inhalation IH SCH (10:50)
[2019-08-09] MEDS: hydrOXYzine pamoate 25 MG CAPSULE PO PRN (18:45)
[2019-08-10 06:31] LABS: Hemoglobin 8.2 g/dL (11.5-15.4); Mean Corpuscular HGB Conc 31.5 g/dL (31.6-35.5); Mean Corpuscular Hemoglobin 31.7 pg (28.0-33.3); Mean Corpuscular Volume 100.4 fL (83.0-100.0); Mean Platelet Volume 9.9 fL (9.4-12.4); Platelet Count 285 K/mcL (140-400); Red Blood Count 2.59 M/mcL (3.82-4.97); Red Cell Distribution Width 16.8 % (11.5-14.5); White Blood Count 8.5 K/mcL (4.3-11.1)
[2019-08-10 07:00] LABS: Calcium 8.1 mg/dL (8.6-10.3); Potassium 3.6 mEq/L (3.5-5.1)
[2019-08-10] MEDS ORDERED: 0.9 % Sodium Chloride 250 ML IVC PRN (07:19)
[2019-08-10] MEDS ORDERED: Albumin 25% 25gram/100mL 25 GM/100 ML IV.SOLN IVPB PRN (07:19)
[2019-08-10] MEDS ORDERED: *HR* Heparin 10,000 UNIT/10 ML VIAL IV PRN (07:33)
[2019-08-10] MEDS: Metoprolol XL (24 HR) Succ 25 MG TAB.ER.24H PO SCH (07:49)
[2019-08-10] MEDS: Aspirin Enteric Coated 81 MG Tablet PO SCH (07:50)
[2019-08-10] MEDS: Sennosides/Docusate Sodium TABLET PO SCH ×2 (07:50→20:45)
[2019-08-10] MEDS: polyethylene glycoL 3350 17 GM POWD.PACK PO SCH (07:51)
[2019-08-10] MEDS: Gabapentin 100 MG CAPSULE PO SCH ×3 (08:00→20:45)
[2019-08-10] MEDS ORDERED: Furosemide 40 MG TABLET PO SCH (09:00)
[2019-08-10] MEDS: Tiotropium 18 MCG inhalation IH SCH (10:09)
[2019-08-10] MEDS: Acetaminophen 325 MG TABLET PO PRN ×2 (14:19→23:04)
[2019-08-10] MEDS: *HR* Heparin 5,000 UNIT/ML VIAL SQ SCH (17:25)
[2019-08-10] MEDS: hydrOXYzine pamoate 25 MG CAPSULE PO PRN (20:47)
[2019-08-11] MEDS: *HR* Heparin 5,000 UNIT/ML VIAL SQ SCH (05:30)
[2019-08-11 06:29] LABS: Hematocrit 27.5 % (35.3-44.9); Hemoglobin 8.6 g/dL (11.5-15.4); Mean Corpuscular HGB Conc 31.3 g/dL (31.6-35.5); Mean Corpuscular Hemoglobin 31.5 pg (28.0-33.3); Mean Corpuscular Volume 100.7 fL (83.0-100.0); Mean Platelet Volume 9.9 fL (9.4-12.4); Platelet Count 263 K/mcL (140-400); Red Blood Count 2.73 M/mcL (3.82-4.97); Red Cell Distribution Width 17.2 % (11.5-14.5); White Blood Count 8.2 K/mcL (4.3-11.1)
[2019-08-11 06:52] LABS: Calcium 8.2 mg/dL (8.6-10.3); Phosphorous 3.1 mg/dL (2.7-4.5); Potassium 3.6 mEq/L (3.5-5.1); Troponin I 0.07 ng/mL (< 0.04)
[2019-08-11] MEDS ORDERED: 0.9 % Sodium Chloride 250 ML IVC PRN (08:09)
[2019-08-11] MEDS ORDERED: *HR* Heparin 10,000 UNIT/10 ML VIAL IV PRN (08:09)
[2019-08-11] MEDS ORDERED: 0.9 % Sodium Chloride 1,000 ML PRIME SCH (08:15)
[2019-08-11] MEDS: Sennosides/Docusate Sodium TABLET PO SCH (09:27)
[2019-08-11] MEDS: Aspirin Enteric Coated 81 MG Tablet PO SCH (09:27)
[2019-08-11] MEDS: Metoprolol XL (24 HR) Succ 25 MG TAB.ER.24H PO SCH (09:28)
[2019-08-11] MEDS: Gabapentin 100 MG CAPSULE PO SCH ×2 (09:28→15:59)
[2019-08-11] MEDS: polyethylene glycoL 3350 17 GM POWD.PACK PO SCH (09:28)
[2019-08-11] MEDS: Tiotropium 18 MCG inhalation IH SCH (10:23)
[2019-08-11 15:23] VITALS: BP 117/81
== END 2019-08-11 16:20 ==
LOC: 3ANU → SUATTDRO 05:42
PROVIDERS: ADMIT Internal Medicine; ATTEND Internal Medicine

== ENCOUNTER 2019-10-31 11:48 | Inpatient (IN) ==
[2019-10-31] MEDS ORDERED: Naloxone 0.4 MG/ML INJ IVP PRN (15:29)
[2019-10-31] MEDS ORDERED: Ipratropium Neb 0.5 MG NEBULIZER IH PRN (16:10)
[2019-10-31] MEDS ORDERED: Azithromycin 250 MG TABLET PO ONE (16:12)
[2019-10-31] MEDS: Ipratropium/Albuterol Neb 3 ML IH SCH ×3 (16:14→23:43)
[2019-10-31] MEDS ORDERED: Aspirin Enteric Coated 325 MG Tablet PO ONE (16:47)
[2019-10-31] MEDS: Furosemide 40 MG/4 ML VIAL IVP SCH (17:15)
[2019-10-31] MEDS: Metoprolol XL (24 HR) Succ 25 MG TAB.ER.24H PO SCH (17:16)
[2019-10-31 18:39] LABS: ABG Base Excess 4 mEq/L (-2 to 3); ABG HCO3 28 mEq/L (21-27); ABG Oxygen Saturation 94 % (95-98); ABG PCO2 38 mmHg (35-45); ABG PH 7.48 pH Units (7.32-7.45); ABG PO2 67 mmHg (85-104); ABG TCO2 29 mEq/L (20-26)
[2019-10-31] MEDS: *HR* Heparin 5,000 UNIT/ML VIAL SQ SCH (20:39)
[2019-10-31] MEDS ORDERED: Melatonin 3 MG TABLET PO ONE (23:00)
[2019-10-31] MEDS: MethylPREDNISolone 40 MG/ML VIAL IVP SCH (23:10)
[2019-11-01] MEDS ORDERED: *HR* LORazepam 2 MG/ML VIAL IVP ONE (00:06)
[2019-11-01] MEDS: Ipratropium/Albuterol Neb 3 ML IH SCH ×6 (03:26→23:28)
[2019-11-01 06:19] LABS: Basophils % 0.2 %; Hematocrit 29.9 % (35.3-44.9); Hemoglobin 9.3 g/dL (11.5-15.4); Immature Granulocytes % 0.4 % (0-4); Lymphocytes # 0.6 K/mcL (0.6-4.6); Lymphocytes % 11.4 %; Mean Corpuscular HGB Conc 31.1 g/dL (31.6-35.5); Mean Corpuscular Hemoglobin 29.7 pg (28.0-33.3); Mean Corpuscular Volume 95.5 fL (83.0-100.0); Mean Platelet Volume 10.5 fL (9.4-12.4); Monocytes # 0.1 K/mcL (0.0-1.3); Neutrophils # 4.3 K/mcL (1.6-8.9); Nucleated Red Blood Cells 0.4 /100 WBC (0); Platelet Count 235 K/mcL (140-400); Red Blood Count 3.13 M/mcL (3.82-4.97); Red Cell Distribution Width 15.8 % (11.5-14.5)
[2019-11-01 06:28] LABS: INR 1.2; Prothrombin Time 13.5 Seconds (9.4-12.1)
[2019-11-01] MEDS: *HR* Heparin 5,000 UNIT/ML VIAL SQ SCH ×3 (06:44→20:17)
[2019-11-01 07:11] LABS: Calcium 9.4 mg/dL (8.6-10.3); Magnesium 2.5 mg/dL (1.6-2.6); Phosphorous 6.6 mg/dL (2.7-4.5); Potassium 4.7 mEq/L (3.5-5.1)
[2019-11-01] MEDS: MethylPREDNISolone 40 MG/ML VIAL IVP SCH ×3 (07:54→22:34)
[2019-11-01] MEDS: Furosemide 40 MG/4 ML VIAL IVP SCH (07:54)
[2019-11-01] MEDS: Metoprolol XL (24 HR) Succ 25 MG TAB.ER.24H PO SCH (07:55)
[2019-11-01] MEDS: Aspirin Enteric Coated 81 MG Tablet PO SCH (07:55)
[2019-11-01 10:52] LABS: Albumin 4.2 g/dL (3.5-5.7)
[2019-11-01 17:28] LABS: Appearance of Pleural Fl Clear (Clear)
[2019-11-01 17:34] LABS: RBC,Pleural Fluid < 2000 RBC/mcL
[2019-11-01 18:05] LABS: Amylase,Pleural Fluid 34 Units/L (No Ref Range); Glucose,Pleural Fluid 135 mg/dL (No Ref Range); LDH,Pleural Fluid 90 Units/L (No Ref Range); Total Protein,Pleural Fluid < 3.0 g/dL
[2019-11-01] MEDS: Azithromycin 250 MG TABLET PO SCH (18:20)
[2019-11-01 19:38] LABS: Basophils,Pleural Fluid 0 %; Monocytes,Pleural Fluid 0 %
[2019-11-01] MEDS: Sennosides/Docusate Sodium TABLET PO SCH (20:17)
[2019-11-01] MEDS: Gabapentin 100 MG CAPSULE PO PRN (20:17)
[2019-11-01] MEDS: Melatonin 3 MG TABLET PO PRN (22:34)
[2019-11-01] MEDS: hydrOXYzine pamoate 25 MG CAPSULE PO PRN (22:34)
[2019-11-02 01:58] LABS: Hematocrit 27.7 % (35.3-44.9); Hemoglobin 8.8 g/dL (11.5-15.4); Mean Corpuscular HGB Conc 31.8 g/dL (31.6-35.5); Mean Corpuscular Hemoglobin 30.8 pg (28.0-33.3); Mean Corpuscular Volume 96.9 fL (83.0-100.0); Mean Platelet Volume 10.2 fL (9.4-12.4); Platelet Count 235 K/mcL (140-400); Red Blood Count 2.86 M/mcL (3.82-4.97); Red Cell Distribution Width 16.1 % (11.5-14.5); Segmented Neutrophils % 92.8 %
[2019-11-02 01:59] LABS: Basophils % 0.2 %; Immature Granulocytes % 0.3 % (0-4); Lymphocytes # 0.5 K/mcL (0.6-4.6); Lymphocytes % 4.3 %; Monocytes # 0.3 K/mcL (0.0-1.3); Monocytes % 2.4 %; Nucleated Red Blood Cells 0.3 /100 WBC (0)
[2019-11-02 02:00] LABS: White Blood Count 11.8 K/mcL (4.3-11.1)
[2019-11-02 02:15] LABS: Calcium 8.9 mg/dL (8.6-10.3); Phosphorous 7.4 mg/dL (2.7-4.5)
[2019-11-02] MEDS: Ipratropium/Albuterol Neb 3 ML IH SCH ×5 (03:47→20:27)
[2019-11-02] MEDS: *HR* Heparin 5,000 UNIT/ML VIAL SQ SCH ×3 (05:11→20:19)
[2019-11-02] MEDS: Gabapentin 100 MG CAPSULE PO PRN ×2 (05:11→23:03)
[2019-11-02] MEDS: MethylPREDNISolone 40 MG/ML VIAL IVP SCH (07:31)
[2019-11-02] MEDS: Sennosides/Docusate Sodium TABLET PO SCH ×2 (07:31→20:19)
[2019-11-02] MEDS: polyethylene glycoL 3350 17 GM POWD.PACK PO SCH (07:31)
[2019-11-02] MEDS: Aspirin Enteric Coated 81 MG Tablet PO SCH (07:32)
[2019-11-02] MEDS ORDERED: 0.9 % Sodium Chloride 250 ML IVC PRN (07:37)
[2019-11-02] MEDS ORDERED: *HR* Heparin 10,000 UNIT/10 ML VIAL IV PRN (07:37)
[2019-11-02] MEDS ORDERED: 0.9 % Sodium Chloride 1,000 ML PRIME SCH (07:45)
[2019-11-02] MEDS ORDERED: MethylPREDNISolone 40 MG/ML VIAL IVP SCH (09:00)
[2019-11-02] MEDS: Metoprolol XL (24 HR) Succ 25 MG TAB.ER.24H PO SCH (13:50)
[2019-11-02] MEDS: Azithromycin 250 MG TABLET PO SCH (17:43)
[2019-11-02] MEDS: Menthol 9.1 MG LOZENGE PO PRN (22:57)
[2019-11-02] MEDS: Melatonin 3 MG TABLET PO PRN (23:02)
[2019-11-02] MEDS: hydrOXYzine pamoate 25 MG CAPSULE PO PRN (23:06)
[2019-11-03] MEDS: Ipratropium/Albuterol Neb 3 ML IH SCH ×3 (00:37→07:31)
[2019-11-03 05:34] LABS: Basophils % 0.2 %; Eosinophils # 0.1 K/mcL (0.0-0.6); Hematocrit 29.2 % (35.3-44.9); Hemoglobin 8.9 g/dL (11.5-15.4); Immature Granulocytes % 0.5 % (0-4); Lymphocytes # 1.6 K/mcL (0.6-4.6); Lymphocytes % 14.4 %; Mean Corpuscular HGB Conc 30.5 g/dL (31.6-35.5); Mean Corpuscular Hemoglobin 30.1 pg (28.0-33.3); Mean Corpuscular Volume 98.6 fL (83.0-100.0); Mean Platelet Volume 10.3 fL (9.4-12.4); Monocytes # 0.9 K/mcL (0.0-1.3); Monocytes % 8.3 %; Neutrophils # 8.5 K/mcL (1.6-8.9); Platelet Count 230 K/mcL (140-400); Red Blood Count 2.96 M/mcL (3.82-4.97); Red Cell Distribution Width 16.7 % (11.5-14.5); Segmented Neutrophils % 75.6 %; White Blood Count 11.2 K/mcL (4.3-11.1)
[2019-11-03] MEDS: *HR* Heparin 5,000 UNIT/ML VIAL SQ SCH (05:42)
[2019-11-03] MEDS: Menthol 9.1 MG LOZENGE PO PRN ×2 (05:44→08:09)
[2019-11-03 05:57] LABS: Calcium 8.7 mg/dL (8.6-10.3); Phosphorous 3.4 mg/dL (2.7-4.5); Potassium 3.7 mEq/L (3.5-5.1)
[2019-11-03 06:34] VITALS: BP 134/70
[2019-11-03] MEDS: Metoprolol XL (24 HR) Succ 25 MG TAB.ER.24H PO SCH (08:02)
[2019-11-03] MEDS: Aspirin Enteric Coated 81 MG Tablet PO SCH (08:02)
[2019-11-03] MEDS: polyethylene glycoL 3350 17 GM POWD.PACK PO SCH (08:02)
[2019-11-03] MEDS: Sennosides/Docusate Sodium TABLET PO SCH (08:03)
[2019-11-03] MEDS ORDERED: predniSONE 20 MG TABLET PO SCH (09:00)
== END 2019-11-03 10:53 | DRG 291 ==
LOC: 2ANU → SUATTDRO 15:02
PROVIDERS: ADMIT Internal Medicine; ATTEND Internal Medicine

== ENCOUNTER 2019-11-07 10:38 | Inpatient (IN) ==
[2019-11-07] MEDS ORDERED: Ondansetron 4 MG/2 ML VIAL IVP PRN (12:56)
[2019-11-07] MEDS ORDERED: Naloxone 0.4 MG/ML INJ IVP PRN (12:56)
[2019-11-07] MEDS ORDERED: 0.9 % Sodium Chloride 250 ML IVC PRN (13:29)
[2019-11-07] MEDS ORDERED: 0.9 % Sodium Chloride 1,000 ML PRIME SCH (13:30)
[2019-11-07] MEDS ORDERED: *HR* Heparin 10,000 UNIT/10 ML VIAL IV PRN (14:30)
[2019-11-07] MEDS ORDERED: hydrOXYzine pamoate 25 MG CAPSULE PO PRN (17:50)
[2019-11-07] MEDS ORDERED: Gabapentin 100 MG CAPSULE PO PRN (17:50)
[2019-11-07] MEDS: Albuterol 2.5 MG/3 ML NEBULIZER IH SCH ×2 (18:46→20:53)
[2019-11-07] MEDS: *HR* Heparin 5,000 UNIT/ML VIAL SQ SCH (21:47)
[2019-11-07] MEDS: Sennosides/Docusate Sodium TABLET PO SCH (21:49)
[2019-11-07] MEDS ORDERED: Piperacillin/Tazobactam 3.375 GM in 0.9 % Sodium Chloride Mini Bag 100 ML IVPB SCH (22:00)
[2019-11-07 22:02] LABS: Basophils % 0.1 %; Hemoglobin 9.9 g/dL (11.5-15.4); Lymphocytes # 0.6 K/mcL (0.6-4.6); Lymphocytes % 5.2 %; Mean Corpuscular HGB Conc 30.9 g/dL (31.6-35.5); Mean Corpuscular Hemoglobin 29.8 pg (28.0-33.3); Mean Corpuscular Volume 96.4 fL (83.0-100.0); Mean Platelet Volume 10.1 fL (9.4-12.4); Monocytes # 0.4 K/mcL (0.0-1.3); Monocytes % 3.7 %; Neutrophils # 10.2 K/mcL (1.6-8.9); Platelet Count 243 K/mcL (140-400); Red Blood Count 3.32 M/mcL (3.82-4.97); White Blood Count 11.3 K/mcL (4.3-11.1)
[2019-11-07 22:25] LABS: Albumin 3.8 g/dL (3.5-5.7); Albumin/Globulin Ratio 1.7 (1.1-2.2); Bilirubin,Total 0.5 mg/dL (0.3-1.0); Calcium 8.7 mg/dL (8.6-10.3); Globulin 2.2 g/dL (2.4-3.5)
[2019-11-07 22:37] LABS: Troponin I 0.13 ng/mL (< 0.04)
[2019-11-07] MEDS: Melatonin 3 MG TABLET PO SCH (23:12)
[2019-11-08] MEDS: Levalbuterol Neb 1.25 MG/3 ML IH SCH ×6 (00:26→23:16)
[2019-11-08 01:19] LABS: Basophils % 0.1 %; Hematocrit 29.3 % (35.3-44.9); Hemoglobin 9.3 g/dL (11.5-15.4); Immature Granulocytes % 0.5 % (0-4); Lymphocytes # 0.6 K/mcL (0.6-4.6); Mean Corpuscular HGB Conc 31.7 g/dL (31.6-35.5); Mean Corpuscular Hemoglobin 30.9 pg (28.0-33.3); Mean Corpuscular Volume 97.3 fL (83.0-100.0); Mean Platelet Volume 10.1 fL (9.4-12.4); Monocytes # 0.6 K/mcL (0.0-1.3); Monocytes % 5.2 %; Neutrophils # 9.8 K/mcL (1.6-8.9); Platelet Count 223 K/mcL (140-400); Red Blood Count 3.01 M/mcL (3.82-4.97); Red Cell Distribution Width 17.2 % (11.5-14.5); Segmented Neutrophils % 89.2 %
[2019-11-08 01:37] LABS: Calcium 8.7 mg/dL (8.6-10.3); Chol/HDL Ratio 1.9 (0-4.9); Magnesium 1.9 mg/dL (1.6-2.6); Phosphorous 3.6 mg/dL (2.7-4.5); Potassium 4.4 mEq/L (3.5-5.1)
[2019-11-08] MEDS: *HR* Heparin 5,000 UNIT/ML VIAL SQ SCH (05:54)
[2019-11-08] MEDS ORDERED: 0.9 % Sodium Chloride 250 ML IVC PRN (06:30)
[2019-11-08] MEDS: Renal Vitamin 1 CAP CAPSULE PO SCH (07:49)
[2019-11-08] MEDS: Aspirin Enteric Coated 81 MG Tablet PO SCH (07:49)
[2019-11-08] MEDS: Sennosides/Docusate Sodium TABLET PO SCH ×2 (07:50→22:20)
[2019-11-08] MEDS: polyethylene glycoL 3350 17 GM POWD.PACK PO SCH (07:50)
[2019-11-08 08:15] LABS: INR 1.2; Prothrombin Time 14.1 Seconds (9.4-12.1)
[2019-11-08] MEDS ORDERED: Metoprolol XL (24 HR) Succ 25 MG TAB.ER.24H PO SCH (09:00)
[2019-11-08] MEDS ORDERED: *HR* Heparin 10,000 UNIT/10 ML VIAL IV PRN (11:13)
[2019-11-08] MEDS ORDERED: 0.9 % Sodium Chloride 250 ML ONE (13:35)
[2019-11-08] MEDS: cefTRIAXone 2,000 MG in Water for inj. (sterile) 20 ML IVP SCH (13:41)
[2019-11-08] MEDS: Azithromycin 500 MG in 0.9 % Sodium Chloride 250 ML IVPB SCH (13:41)
[2019-11-08] MEDS ORDERED: 0.9 % Sodium Chloride 500 ML IV ONE (16:44)
[2019-11-08 17:15] LABS: RBC,Pleural Fluid < 2000 RBC/mcL
[2019-11-08 17:18] LABS: Appearance of Pleural Fl Clear (Clear)
[2019-11-08 17:37] LABS: LDH,Pleural Fluid 77 Units/L (No Ref Range); Total Protein,Pleural Fluid < 3.0 g/dL
[2019-11-08] MEDS: Melatonin 3 MG TABLET PO SCH (22:17)
[2019-11-09] MEDS: Levalbuterol Neb 1.25 MG/3 ML IH SCH ×6 (03:32→22:58)
[2019-11-09 05:16] LABS: Hematocrit 30.9 % (35.3-44.9); Hemoglobin 9.7 g/dL (11.5-15.4); Mean Corpuscular HGB Conc 31.4 g/dL (31.6-35.5); Mean Corpuscular Hemoglobin 30.8 pg (28.0-33.3); Mean Corpuscular Volume 98.1 fL (83.0-100.0); Mean Platelet Volume 10.3 fL (9.4-12.4); Platelet Count 269 K/mcL (140-400); Red Blood Count 3.15 M/mcL (3.82-4.97); Red Cell Distribution Width 17.7 % (11.5-14.5); White Blood Count 13.3 K/mcL (4.3-11.1)
[2019-11-09 05:32] LABS: Calcium 8.7 mg/dL (8.6-10.3)
[2019-11-09 05:49] LABS: Lactate Dehydrogenase 199 Units/L (140-271); Total Protein 5.6 g/dL (6.4-8.9)
[2019-11-09] MEDS: Acetaminophen 325 MG TABLET PO PRN ×2 (06:49→23:23)
[2019-11-09] MEDS: Sennosides/Docusate Sodium TABLET PO SCH ×2 (07:58→21:28)
[2019-11-09] MEDS: Aspirin Enteric Coated 81 MG Tablet PO SCH (07:59)
[2019-11-09] MEDS: Renal Vitamin 1 CAP CAPSULE PO SCH (07:59)
[2019-11-09] MEDS: polyethylene glycoL 3350 17 GM POWD.PACK PO SCH (07:59)
[2019-11-09] MEDS ORDERED: *HR* Heparin 10,000 UNIT/10 ML VIAL IV PRN ×2 (12:35)
[2019-11-09] MEDS ORDERED: 0.9 % Sodium Chloride 250 ML IVC PRN (12:35)
[2019-11-09] MEDS ORDERED: Albumin 25% 25gram/100mL 25 GM/100 ML IV.SOLN IVPB PRN (12:35)
[2019-11-09] MEDS: cefTRIAXone 2,000 MG in Water for inj. (sterile) 20 ML IVP SCH (18:00)
[2019-11-09] MEDS: Azithromycin 500 MG in 0.9 % Sodium Chloride 250 ML IVPB SCH (18:01)
[2019-11-09] MEDS: Melatonin 3 MG TABLET PO SCH (21:28)
[2019-11-10] MEDS: Levalbuterol Neb 1.25 MG/3 ML IH SCH ×3 (03:43→11:43)
[2019-11-10 04:37] LABS: Hematocrit 28.7 % (35.3-44.9); Hemoglobin 8.8 g/dL (11.5-15.4); Mean Corpuscular HGB Conc 30.7 g/dL (31.6-35.5); Mean Corpuscular Hemoglobin 30.9 pg (28.0-33.3); Mean Corpuscular Volume 100.7 fL (83.0-100.0); Mean Platelet Volume 10.3 fL (9.4-12.4); Platelet Count 237 K/mcL (140-400); Red Blood Count 2.85 M/mcL (3.82-4.97); Red Cell Distribution Width 17.7 % (11.5-14.5); White Blood Count 10.1 K/mcL (4.3-11.1)
[2019-11-10 04:58] LABS: Calcium 8.5 mg/dL (8.6-10.3); Potassium 3.6 mEq/L (3.5-5.1)
[2019-11-10] MEDS: Sennosides/Docusate Sodium TABLET PO SCH (07:42)
[2019-11-10] MEDS: Renal Vitamin 1 CAP CAPSULE PO SCH (07:43)
[2019-11-10] MEDS: Aspirin Enteric Coated 81 MG Tablet PO SCH (07:43)
[2019-11-10] MEDS: polyethylene glycoL 3350 17 GM POWD.PACK PO SCH (07:44)
[2019-11-10 15:06] VITALS: BP 101/65
== END 2019-11-10 15:30 | DRG 291 ==
LOC: 2ANU
PROVIDERS: ADMIT Internal Medicine; ATTEND Internal Medicine